=== PATIENT | male | born 1940 | race Caucasian/White ===

== ENCOUNTER 2017-08-23 17:29 | Inpatient (IN) | payer MEDICARE, OTHER ==
[~2017-08-23] VITALS: Ht 167.6 cm; Wt 75.3 kg
[~2017-08-23 17:29] MED LIST: ADULT LOW DOSE81 MG PO; ALDACTONE25 MG PO; AMITRIPTYLINE H50 M2 PER TUBE; ASPIRIN325; AVELOX 400 MG400 MG PO; DESYREL50 MG; EXFORGE; FISHOIL; HUMULINR100; IMDUR 30 MG TAB30 M1 PER TUBE; LOPRESSOR25 PO; MULTIVITAMINS; NEXIUM40 MG PO; PLAVIX 75 MG TA75 MG; ZETIA10 MG; ZOCOR40 MG
[2017-08-23] MEDS ORDERED: ELIQUIS5 MG PO (18:08)
[2017-08-23] MEDS ORDERED: DILTIAZEM HCL90 MG PER TUBE (18:12)
[2017-08-23] MEDS ORDERED: OMEGA-31000 M1 PER TUBE (18:16)
[2017-08-23] MEDS ORDERED: BENICAR40 MG PO (18:18)
[2017-08-23] MEDS ORDERED: PRAVACHOL40 MG PO (18:19)
[2017-08-23] MEDS ORDERED: LEVEMIR100 UNIT/1 SUBQ (18:21)
[2017-08-23] MEDS ORDERED: HUMALOG100 UNIT/1 SUBQ (18:22)
[2017-08-23 20:30] VITALS: BP 142/85
--- NOTE | 2017-08-23 23:02 | NUR ---
PT ARRIVED VIA TRANSPORTER FROM [place] AT 1930. PT IS ALERT AND ORIENTED. 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 DIFFICULT TO UNDERSTAND. ONLY ABLE TO MAKE OUT FEW WORDS BUT OTHERWISE SPEECH GARBLED. PT APPEARS TO BE ABLE TO UNDERSTAND CONVERSATIONS. ON O2 2L NC. TEMP: 99.6, BP: 142/85. HR IS IRREGULAR AND RUNNING FROM 60-150'S WITHIN MINUTES. 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 PT IS ON CARDIZEM. HX OF AFIB, HTN, DM. PT NOT IN DISTRESS AND DENIES ANY CHEST PAIN, DIZZINESS, HEADACHE OR SOA. DOES HAVE COUGH. FINE CRACKLES TO LOWER LOBES. HAD DIFFICULTY COMPLETING ADMISSION DUE TO APHASIA. PT SAYS WILL BE HERE TOMORROW. CALL LIGHT IN REACH. PT RESTING. WILL CONTINUE TO MONITOR.
[2017-08-24 03:48] LABS: HEMATOCRIT 42.5 % (42.0-52.0); MCH 29.8 pg (26.0-34.0); MCV 90.3 fL (80.0-100.0); MPV 7.7 fl. (7.2-11.1); RBC 4.71 mil/uL (4.50-6.00); RDW-CV 15.1 % (10.5-14.5); WBC 12.9 thou/uL (4.0-11.0)
[2017-08-24 04:02] LABS: CALCIUM 8.6 mg/dL (8.5-10.1); POTASSIUM 3.5 mmol/L (3.5-5.1)
--- NOTE | 2017-08-24 07:59 | NUR ---
PT IS A MOD ASSIST X 1-2 PERSON WITH WALKER. STAND AND PIVOT. RIGHT SIDE WEAK. TENDS TO LEAN TO RIGHT SIDE. WAS INCONTINENT OF URINE X 2. ASSISTED PT WITH USE OF URINAL WELL. STAFF DID ALL CARES. TAKES PILLS WHOLE IN APPLESAUCE WITHOUT ANY ISSUES. SLEPT OFF AND ON DURING THE NIGHT. CALL LIGHT IN REACH AND BED ALARM ON.
[2017-08-24 08:11] VITALS: BP 102/57
--- NOTE | 2017-08-24 16:17 | NUR ---
PT CALLS FOR ASSIST TO BATHROOM AND VOIDS WELL. PT AMBULATES WITH WALKER,GAITBELT AND MIN ASSIST OF 1 WITH QUEING TO FIELD SERVICE MANAGER RT. FOOT AND KEEP SELF IN WALKER. PT CONTINUES TO HAVE DIFFICULTY WITH WORDS AND IS APHASIC AND CAN ANSWER YES AND NO. PT HAS VISITED WITH WHO WILL BRING IN CLOTHING TOMORROW FOR PT. MEDS CRUSHED AND GIVEN IN APPLESAUCE BUT HE POCKETS FOODS IN RT.CHEEK AND IS ENCOURAGED TO TAKE DRINK OF NECTOR LIQUID BETWEEN BITES. PT STARTED ON MUCINEX DUE TO POOR COUGH AND COARSE CRACKLES IN BILAT LUNGS.PT DENIES PAIN OR NAUSEA AND FEEDS SELF PUREED MEALS AFTER CARTONS OPENED. PT ALERT AND PROGRESSES TOWARDS GOALS, HOURLY ROUNDING CONTINUES.
[2017-08-24 17:11] VITALS: BP 111/52
[2017-08-24 19:50] VITALS: BP 113/41
--- NOTE | 2017-08-25 05:21 | NUR ---
ASSUMED PT CARE AT 1920, PT ALREADY IN BED. LEFT CVA WITH R ELIZABETH, EXPRESSIVE APHASIA AND DYSPHAGIA. PT CAN ANSWER YES AND NO TO QUESTIONS. PT DENIES PAIN. INCONTINENT OF URINE X1 OVERNIGHT, WEARS BRIEFS. PT ASSISTED WITH USING URINAL AT BEGINNING OF SHIFT. STAFF DOES ALL CARES. PT TAKES PILLS WHOLE IN APPLESAUCE WITHOUT DIFFICULTY. SLEPT OFF AND ON OVERNIGHT. CALL LIGHT AND FREQUENTLY USED ITEMS WITHIN REACH, BED ALARM ON FOR SAFETY. HOURLY ROUNDING IN PROGRESS, WILL CONTINUE TO MONITOR.
[2017-08-25 08:09] VITALS: BP 93/53
--- NOTE | 2017-08-25 16:42 | NUR ---
PT HAS BEEN UP TO CHAIR AND AMBULATED TO BATHROOM WITH MOD ASSIST OF 1,GAITBELT AND WALKER WITH QUEING TO WALK RT FOOT THROUGH WITH GOOD STRENGTH. PT DENIES PAIN OR NAUSEA. PT TOLERATES MEALS AND EATS IN DINNINGROOM, PUREED DIET WITH NECTOR LIQUIDS. MEDICATIONS SPOONED WITH NECTOR LIQUIDS AND CHIN TUCK METHOD WITH GOOD RESULTS. PT HAS LOOSE COUGH IN AM WITH LUNGS CLEARER THIS AFTERNOON. PT REMAINS CONTINENT OF BLADDER WITH REMINDERS TO GO TO BATHROOM OR TAKEN BEFORE MEALS. PT WEARS BREIF FOR DRIBBLING, NO BM TODAY.PT ATEMPTS TO PULL UP BREIF BUT NEEDS ASSIST FOR STEADING. PT WAS ASSISTED WITH SHOWER TODAY. TO BRING IN CLOTHING TOMORROW. PT SEEMS ALERT AND ORIENTATED AND IS REMINDED TO USE WORDS AND WILL REPEAT CORRECT WORDS FOR NEEDS. PT PROGRESSES TOWARDS GOALS AND HOURLY ROUNDING CONTINUES.
[2017-08-25 18:05] VITALS: BP 99/51
[2017-08-25 20:22] VITALS: BP 107/50
[2017-08-26 04:18] LABS: ABSOLUTE BASOPHILS 0.1 thou/uL (0.0-0.2); ABSOLUTE EOSINOPHILS 0.2 thou/uL (0.0-0.7); ABSOLUTE LYMPHOCYTES 2.1 thou/uL (0.8-5.3); ABSOLUTE MONOCYTES 0.8 thou/uL (0.0-1.2); ABSOLUTE NEUTROPHILS 9.8 thou/uL (1.6-8.1); BASOPHILS 0.5 %; EOSINOPHILS 1.3 %; HEMATOCRIT 41.2 % (42.0-52.0); HEMOGLOBIN 13.6 gm/dL (14.0-18.0); LYMPHOCYTES 16.2 %; MCH 29.9 pg (26.0-34.0); MCHC 32.9 g/dL (28.0-37.0); MCV 90.9 fL (80.0-100.0); MONOCYTES 6.3 %; MPV 8.3 fl. (7.2-11.1); NUCLEATED RBCS 0 /100WBC; PLATELET COUNT* 204 thou/uL (150-400); POLYS 75.7 %; RBC 4.54 mil/uL (4.50-6.00); RDW-CV 15.2 % (10.5-14.5); WBC 12.9 thou/uL (4.0-11.0)
[2017-08-26 04:28] LABS: CALCIUM 8.5 mg/dL (8.5-10.1); POTASSIUM 3.3 mmol/L (3.5-5.1)
--- NOTE | 2017-08-26 05:20 | NUR ---
ASSUMED PT CARE [id number]. PT ALERT AND ORIENTED TO SELF AND SITUATION. PT ALREADY IN BED AT SHIFT CHANGE. LEFT CVA WITH R ELIZABETH, EXPRESSIVE APHASIA AND DYSPHAGIA. PT CAN ANSWER YES OR NO TO QUESTIONS. DENIES PAIN. TAKES PILLS WHOLE IN APPLESAUCE WITHOUT DIFFICULTY. PT WEARS BRIEFS, CHANGED PRN OVERNIGHT. STAFF DOES ALL CARES. NO STOOL THIS SHIFT. PT SLEPT WELL OVERNIGHT. CALL LIGHT AND FREQUENTLY USED ITEMS WITHIN REACH. BED ALARM ON FOR SAFETY. HOURLY ROUNDING IN PROGRESS WILL CONTINUE TO MONITOR.
[2017-08-26 07:50] VITALS: BP 117/56
--- NOTE | 2017-08-26 13:43 | NUR ---
Nutrition: Pt admitted to rehab with Lt CVA, Rt hemiparesis. Pt has expressive aphasia and dysphagia. H/o CVA, HTN, DM, afib. Labs: K+ 3.3, albumin 3.6, BG 236-363. Pt eating 50-90% of meals. Pureed diet with a CHO count is ordered; [place] thickened fluids. Will follow pt weekly.
--- NOTE | 2017-08-26 14:35 | NUR ---
SW met with pt and pt Hallie to complete initial assessment and introduce self and SW role on rehab unit. Pt was sleeping. Pt lives at home with his and was independent prior to the CVA. Pt does not have a rolling walker and may need one ordered prior to pt dc home. Pt history with [facility] and pt expressed that she was not impressed. Pt mentioned that pt was supposed to have an appt September 03 to check on carotid artery that apparently had a clot removed and pt said she asked about cancelling the appt and rescheduling but then was told pt may need the appt sooner rather than later. Pt could not recall who the appt was with or where the appt was. SW to continue to follow to assist with safe dc planning.
[2017-08-26 15:00] VITALS: BP 117/56
[2017-08-26 20:00] VITALS: BP 107/58
--- NOTE | 2017-08-27 05:13 | NUR ---
ASSUMED PT CARE AT 1930. PT ALERT AND ORIENTED TO SELF AND SITUATION. PT ALREADY IN BED AT SHIFT CHANGE. LEFT CVA WITH R ELIZABETH, EXPRESSIVE APHASIA AND DYSPHAGIA. PT CAN ANSWER YES OR NO TO QUESTIONS. DENIES PAIN. TAKES PILLS WHOLE IN APPLESAUCE WITHOUT DIFFICUTLY. PT USES URINAL AND WEARS BRIEFS, CHANGED PRN OVERNIGHT. STAFF DOES ALL CARES. NO STOOL THIS SHIFT. PT SPENT THE NIGHT. CALL LIGHT AND FREQUENTLY USED ITEMS WITHIN REACH. BED ALARM ON FOR SAFETY. HOURLY ROUNDING IN PROGRESS, WILL CONTINUE TO MONITOR.
[2017-08-27 07:30] VITALS: BP 115/68
[2017-08-27 11:00] VITALS: BP 105/60; BP 95/57
--- NOTE | 2017-08-27 15:09 | NUR ---
ASSUMED CARE AT 0730. ALERT ORIENTED PLEASANT COOPERATIVE. HX OF CVA WITH APHASIA. PT. ABLE TO EXPRESS NEEDS BY GESTURES SUCH GO TO BED OR URINAL TOILETING. HAS ISSUES WITH DROOLING AFTER TAKING NECTAR THICK FLUIDS GIVEN. TAKES MEDS WHOLE ONE AT A TIME WITH APPLESAUCE. FOLLOWED WITH NECTAR LIQUIDS. APPETITE GOOD FEEDS SELF WITH SET UP PUREED DIET. AT BEDSIDE. PARTICIPATING IN THERAPIES. TO DR FOR LUNCH MEAL WITH S.T. O2 AT 2L/M PER N/C AT TIMES PRONGS FROM CANNULA NOT IN NARES, RECEIVED LONGER TUBING FOR CONVENIENCE FROM R.T. PT. HAS DIFFICULTY GETTING SUPINE TO SIT FROM BED LEANS BACK IN BED. NEEDS CUES. VOIDED IN URINAL AND IN TOILET SAT ON TOILET GRABS GRAB BAR FOR THIS TRANSFER.
[2017-08-27 16:24] VITALS: BP 127/76
--- NOTE | 2017-08-27 16:25 | NUR ---
PT. MOVED WITH BELONGINGS TO ROOM 328-W AT 1620 VOIDED PER URINAL WEARS PULLUPS. COT OBTAINED FOR WHO IS STAYING TONIGHT. ORIENTED TO NEW ROOM AND PHONE NUMBER ETC.
[2017-08-27 20:00] VITALS: BP 126/62
[2017-08-28 04:50] LABS: CALCIUM 8.6 mg/dL (8.5-10.1)
[2017-08-28 04:55] LABS: ABSOLUTE BASOPHILS 0.1 thou/uL (0.0-0.2); ABSOLUTE EOSINOPHILS 0.3 thou/uL (0.0-0.7); ABSOLUTE LYMPHOCYTES 2.2 thou/uL (0.8-5.3); ABSOLUTE NEUTROPHILS 6.1 thou/uL (1.6-8.1); BASOPHILS 0.6 %; EOSINOPHILS 2.8 %; HEMATOCRIT 39.2 % (42.0-52.0); HEMOGLOBIN 13.3 gm/dL (14.0-18.0); LYMPHOCYTES 22.6 %; MCH 30.4 pg (26.0-34.0); MCHC 33.9 g/dL (28.0-37.0); MCV 89.6 fL (80.0-100.0); MONOCYTES 10.2 %; MPV 8.3 fl. (7.2-11.1); NUCLEATED RBCS 0 /100WBC; PLATELET COUNT* 236 thou/uL (150-400); POLYS 63.8 %; RBC 4.38 mil/uL (4.50-6.00); RDW-CV 15.2 % (10.5-14.5); WBC 9.6 thou/uL (4.0-11.0)
--- NOTE | 2017-08-28 05:24 | NUR ---
ASSUMED CARES AT 1920. PT ALERT. PLEASANT. AT BEDSIDE. PT ON O2 2L NC. EXPRESSIVE APHASIA. MAKES NEEDS KNOWN BY GESTURES. DYSPHAGIA. TAKES PILLS WHOLE IN APPLESAUCE. NECTAR THICK LIQUIDS. CUEING TO SWALLOW AND TAKE SIPS. DENIED ANY PAIN. DOES HAVE COUGH. HE IS A MOD ASSIST WITH GAIT BELT AND WALKER/WC. UP TO TOILET ONCE AND HAD BM. CAN USE URINAL IF OFFERED BUT IS INCONTNENT WELL. WEARS PULLUPS. RN DID ALL CARES. STAYED OVERNIGHT. SLEPT MOST OF THE NIGHT. PT TURNS SELF WELL IN BED AND WILL SLEEP ON BOTH SIDES. CALL LIGHT IN REACH. BED ALARM ON.
[2017-08-28 08:05] VITALS: BP 111/68
--- NOTE | 2017-08-28 17:10 | NUR ---
SW met with pt and pt and two friends in the room as well to review team conference summary with pt. Plan for pt to remain on rehab and continue therapies at least another week and team will reassess pt length of stay during next team conference on Monday 09/04. Pt and pt in agreement with plan. Pt discussed pt possible appt or Dr to see pt in the hospital and provided number to the office she has been talking with: [phone]. Pt said that she also provided information to pt nurse. THOMAS to continue to follow to assist with safe dc planning.
--- NOTE | 2017-08-28 17:39 | NUR ---
ASSUMED CARE AT 0730 PATIENT ALERT/ORIENTED, NO COMPLAINTS OF PAIN THIS SHIFT, UP WITH ASSIST OF ONE AND WALKER AND GAIT BELT. APHASIC BUT ABLE TO MAKE BASIC NEEDS KNOWN, HOURLY ROUNDING COMPLETED, TO DINING ROOM FOR MEALS, BED/CHAIR ALARMS IN PLACE, PARTICIPATED IN ALL THERAPIES TODAY. CALL LIGHT IN REACH. CONTINUE WITH CURRENT PLAN OF CARE
[2017-08-28 20:20] VITALS: BP 108/60
[2017-08-29] VITALS: BP 128/62
--- NOTE | 2017-08-29 01:44 | NUR ---
ASSUMED CARE @ 1935[birth year]08[birth year]-.SITS IN RECLINER WATCHING TV.WEARS PULL UPS. HOB UP WHEN IN BED.HEELS OFF BED @ 2034.BED ALARM PUT ON @ 2034.TURNS SELF @ NIGHT.TAKES MEDS WHOLE ONE @ A TIME W/ APPLE SAUCE FOLLOWED W/ NECTAR THICK JUICE.ON HOURLY ROUNDS.VETERINARY RECEPTIONIST DOING ODD HOUR ROUNDS.CVA W/ APHASIA & DYSPHAGIA.
[2017-08-29 04:19] LABS: ABSOLUTE BASOPHILS 0.1 thou/uL (0.0-0.2); ABSOLUTE EOSINOPHILS 0.2 thou/uL (0.0-0.7); ABSOLUTE LYMPHOCYTES 2.3 thou/uL (0.8-5.3); ABSOLUTE MONOCYTES 0.9 thou/uL (0.0-1.2); ABSOLUTE NEUTROPHILS 5.2 thou/uL (1.6-8.1); BASOPHILS 0.6 %; EOSINOPHILS 2.6 %; HEMATOCRIT 38.3 % (42.0-52.0); HEMOGLOBIN 12.8 gm/dL (14.0-18.0); LYMPHOCYTES 26.7 %; MCH 30.2 pg (26.0-34.0); MCHC 33.4 g/dL (28.0-37.0); MCV 90.2 fL (80.0-100.0); MONOCYTES 10.1 %; MPV 7.9 fl. (7.2-11.1); NUCLEATED RBCS 0 /100WBC; PLATELET COUNT* 244 thou/uL (150-400); RBC 4.25 mil/uL (4.50-6.00); RDW-CV 14.9 % (10.5-14.5); WBC 8.6 thou/uL (4.0-11.0)
[2017-08-29 04:26] LABS: CALCIUM 8.6 mg/dL (8.5-10.1)
[2017-08-29 04:43] LABS: POTASSIUM 4.2 mmol/L (3.5-5.1)
--- NOTE | 2017-08-29 05:20 | NUR ---
SLEEPING SINCE 0.WEARS PULL UPS.TURNS SELF @ NIGHT.TOOK ALL NECTAR THICK APPLE JUICE W/ APPLE SAUCE GIVEN W/ HS MEDS.BRP X1 W/ ASSIST.URINAL W/IN REACH.
[2017-08-29 06:40] VITALS: BP 133/82
[2017-08-29 07:24] VITALS: BP 113/55
--- NOTE | 2017-08-29 16:26 | NUR ---
ASSUMED CARE AT 0730 PATIENT ALERT/ORIENTED NO COMPLAINTS OF PAIN THIS SHIFT, APHASIC BUT ABLE TO MAKE NEEDS KNOWN, UP WITH ONE AND WALKER/GAIT BELT. TO DINING ROOM FOR MEALS, HOURLY ROUNDING COMPLETED, BED/CHAIR ALARMS IN PLACE. PARTICIPATED IN ALL THERAPIES TODAY. CONTINUE WITH CURRENT PLAN OF CARE
[2017-08-29 20:00] VITALS: BP 100/43
[2017-08-30 04:25] LABS: ABSOLUTE BASOPHILS 0.1 thou/uL (0.0-0.2); ABSOLUTE EOSINOPHILS 0.2 thou/uL (0.0-0.7); ABSOLUTE LYMPHOCYTES 2.1 thou/uL (0.8-5.3); ABSOLUTE MONOCYTES 0.7 thou/uL (0.0-1.2); ABSOLUTE NEUTROPHILS 5.5 thou/uL (1.6-8.1); BASOPHILS 0.8 %; EOSINOPHILS 2.2 %; HEMATOCRIT 37.9 % (42.0-52.0); HEMOGLOBIN 12.5 gm/dL (14.0-18.0); LYMPHOCYTES 24.5 %; MCHC 33.1 g/dL (28.0-37.0); MCV 90.8 fL (80.0-100.0); MONOCYTES 8.4 %; MPV 7.7 fl. (7.2-11.1); NUCLEATED RBCS 0 /100WBC; PLATELET COUNT* 262 thou/uL (150-400); POLYS 64.1 %; RBC 4.17 mil/uL (4.50-6.00); RDW-CV 14.9 % (10.5-14.5); WBC 8.6 thou/uL (4.0-11.0)
[2017-08-30 04:50] LABS: CALCIUM 8.5 mg/dL (8.5-10.1); CREATININE 0.9 mg/dL (0.6-1.3); POTASSIUM 3.7 mmol/L (3.5-5.1)
--- NOTE | 2017-08-30 06:26 | NUR ---
ASSUMED PT CARE AT 1930. PT ALREADY IN BED ASLEEP. CVA WITH APHASIA AND DYSPHAGIA. AROUSES FOR HS MEDS TAKEN WHOLE WITH APPLESAUCE AND FOLLOWED WITH NECTAR THICK JUICE. PT HAS STRONG PRODUCTIVE COUGH. PT DENIES PAIN. PT WEARS PULLUPS OVERNIGHT. VOIDED PER URINAL X1. PT TURNS SELF AT NIGHT. PT USES CALL LIGHT APPROPRIATELY. CALL LIGHT AND FREQUENTLY USED ITEMS WITHIN REACH. HOURLY ROUNDING IN PROGRESS, WILL CONTINUE TO MONITOR.
[2017-08-30 08:31] VITALS: BP 116/57
--- NOTE | 2017-08-30 18:19 | NUR ---
ASSUMMED CARE OF PT AT 0730, PT ALERT AND ORIENTED, TRANSFERS WITH ASSIST OF 1, GB AND WALKER, PT APHASIC USES GESTURES AND FEW WORDS, PT HAS DECREASED APETITE, PT DENIES PAIN, DENIES NAUSEA, PT IN CHAIR ALL SHIFT, STATES DOES NOT WANT TO LAY DOWN, PT ENCOURAGED TO SHIFT WEIGHT IN CHAIR FREQUENTLY, DOES CHANGE POSITIONS WITH THERAPIES AND SWITCHES BETWEEN WHEELCHAIR AND ROOM CHAIR AT INTERVALS, VOID PER TOILET AND URINAL THIS SHIFT, WEARS BRIEF FOR SOME INCONTINENCE, PARTICIPATED IN ALL THERAPIES, TO DININGROOM FOR LUNCH AND DINNER, HOURLY ROUNDING COMPLETED, ASSESSMENT COMPLETE, WILL CONTINUE TO MONITER.
[2017-08-30 20:34] VITALS: BP 115/51
--- NOTE | 2017-08-30 23:16 | NUR ---
ASSUMED CARE AT 1930. S/P CVA WITH RT SIDED WEAKNESS AND APHASIA. PATIENT RESTING IN BED AT CHANGE OF SHIFT. SPENDING THE NIGHT AND ASKING PERTINENT QUESTIONS ABOUT HIS MEDICATIONS. REASSURED THAT WE WILL GIVE HER A DETAILED LIST OF HOME MEDICATIONS WHEN HE IS DISCHARGED. TAKES PILLS WHOLE IN APPLESAUCE, FOLLOWED BY NECTAR THICKENED LIQUIDS. HAD ENTIRE CONTAINER OF APPLESAUCE AT HS WITH MEDS AND DECLINED FURTHER SNACK. PATIENT DOES MAKE NEEDS KNOWN. TURNS SELF. WEARS PULLUPS. VOIDS PER URINAL AT [facility]. HOURLY ROUNDS CONTINUE. BED ALARM ON. CALL LITE IN REACH.
[2017-08-31 04:18] LABS: ABSOLUTE BASOPHILS 0.1 thou/uL (0.0-0.2); ABSOLUTE EOSINOPHILS 0.2 thou/uL (0.0-0.7); ABSOLUTE MONOCYTES 0.6 thou/uL (0.0-1.2); ABSOLUTE NEUTROPHILS 4.5 thou/uL (1.6-8.1); BASOPHILS 0.8 %; EOSINOPHILS 2.4 %; HEMATOCRIT 38.5 % (42.0-52.0); HEMOGLOBIN 12.9 gm/dL (14.0-18.0); LYMPHOCYTES 26.8 %; MCH 30.1 pg (26.0-34.0); MCHC 33.5 g/dL (28.0-37.0); MCV 89.8 fL (80.0-100.0); MONOCYTES 8.7 %; MPV 7.8 fl. (7.2-11.1); NUCLEATED RBCS 0 /100WBC; PLATELET COUNT* 295 thou/uL (150-400); POLYS 61.3 %; RBC 4.29 mil/uL (4.50-6.00); RDW-CV 15.2 % (10.5-14.5); WBC 7.3 thou/uL (4.0-11.0)
[2017-08-31 04:31] LABS: CALCIUM 8.6 mg/dL (8.5-10.1)
--- NOTE | 2017-08-31 05:57 | NUR ---
SLEPT MOST OF THE NIGHT. TURNS SELF. NO C/O PAIN. SPENT THE NIGHT. HOURLY ROUNDS CONTINUE. BED ALARM ON. CALL LITE IN REACH.
[2017-08-31 07:30] VITALS: BP 119/48
--- NOTE | 2017-08-31 18:18 | NUR ---
ASSUMED CARE AT 0730. ALERT ORIENTED PLEASANT COOPERATIVE. HX OF CVA APHASIA MAKES NEEDS KNOWN BY GESTURES. TRANSFERS WITH SBA G BELT WALKER O2 ON AT 2L/M PER N/C. AMBULATED TO BR TO VOID AFTER GETTING UP. USING CALL LIGHT APPROPRIATELY FOR ASSISTANCE. BED CHAIR ALARM FOR PT. SAFETY. O2 SAT WAS 85% ON ROOM AIR THIS A.M. O2 PLACED AT 2L/M PER N/C AND CAME UP TO 97%. PARTICIPATING IN THERAPIES. FEEDS SELF WITH SET UP. DENIES PAIN OR REQUESTS. TAKES MEDS WITH APPLESAUCE WHOLE. AT BEDSIDE. HAD A SMALL BM THIS AFTERNOON.
[2017-08-31 20:11] VITALS: BP 94/67
--- NOTE | 2017-09-01 03:03 | NUR ---
PT UNABLE TO VOID INTO URINAL AFTER 2 ATTEMPTS SINCE BEGINNING OF NIGHT. DENIES ANY PAIN. AT 0200, BLADDER SCAN SHOWED 700 CC. PT GOT UP TO TOILET AND WAS ABLE TO VOID COURT URINE. PVR SCAN SHOWED 450 CC. PT RETURNED TO BED. RESTING NOW. WILL CONTINUE TO MONITOR.
--- NOTE | 2017-09-01 05:15 | NUR ---
ASSUMED CARES AT 1920. PT ALERT. PLEASANT. STAYED OVERNIGHT. ON O2 2L NC. DOES HAVE LOOSE COUGH WITH SMALL AMOUNTS OF THICK YELLOW SPUTUM. DENIES ANY PAIN. HE IS A MOD ASSIST WITH GAIT BELT AND WALKER. MORE WEAK DURING THE NIGHT. MAY TEND TO LEAN TO RIGHT SIDE. WEARS PULLUPS. TAKES PILLS WHOLE IN APPLESAUCE AND NECTAR THICK LIQUIDS. PT SLEPT OFF AND ON. SLEPT OVERNIGHT. CALL LIGHT IN REACH.
[2017-09-01 08:00] VITALS: BP 99/60
[2017-09-01 13:00] VITALS: BP 96/56
[2017-09-01 14:23] LABS: URINE BILIRUBIN NEGATIVE (Negative); URINE BLOOD 3+ (Negative); URINE CLARITY SL CLOUDY; URINE COLOR YELLOW; URINE GLUCOSE-RANDOM NEGATIVE (Negative); URINE KETONES NEGATIVE (Negative); URINE LEUKOCYTES-REFLEX 1+ (Negative); URINE NITRITE-REFLEX NEGATIVE (Negative); URINE PROTEIN 1+ (Negative)
[2017-09-01 14:34] LABS: BACTERIA-REFLEX >30 Many /HPF (None Seen); CASTS None Seen /LPF (None Seen); CRYSTALS None Seen /LPF (None Seen); MUCUS None Seen strn/LPF (None Seen); SQUAMOUS 0-3 Few /LPF (0-3); URINE RBC >20 Many /HPF (0-2); URINE WBC-REFLEX >25 Many /HPF (0-5)
--- NOTE | 2017-09-01 16:28 | NUR ---
ASSUMMED CARE OF PT AT 0730, PT APHASIC TRANSFERRED THIS AM WITH MIN ASSIST BG WALKER CUEING, AT NOON PT NOTED TO BE LEANING TO RIGHT SIDE, AND HE WAS UNABLE TO MAINTENANCE TECHNICIAN 3RD SHIFT RIGHT LEG TO MOVE FORWARD, HIS GAIT WAS VERY UNSTEADY, DISCUSSED WITH DR LANIER AND ORDER FOR HEAD CT OBTAINED, PT VOIDED IN TOILET AT 0800 BUT HAD BEEN UP TO TOILET 2 ADDITIONAL TIMES WITH INABILITY TO VOID, PT SCANNED FOR 481 CC, DISCUSSED WITH ADINA AND PT ST CATHED AT [address] CLOUDY URINE, SOME BLOOD NOTED, UA SENT TO LAB, RESULTS OF UA AND CT SCAN CALLED TO PHYSICIAN, O2 SAT 91% ON 2 L, PT ENCOURAGED TO COUGH AND DEEP BREATHE, USE OF IS, PT RESTING IN BED THIS PM, VSS, ATE WELL FOR BREAKFAST AND LUNCH, HOURLY ROUNDING COMPLETED, ASSESSMENT COMPLETE WILL CONTINUE TO MONITER.
[2017-09-01 20:00] VITALS: BP 101/53
--- NOTE | 2017-09-02 06:20 | NUR ---
ASSUMED CARES AT 1920. PT ALERT. PLEASANT. APHASIC. CAN MAKE NEEDS KNOWN WITH GESTURES. UNDERSTANDS QUESTIONS AND COMMANDS. ON O2 2L NC. TAKES PILLS WHOLE IN APPLESAUCE AND NECTAR THICK LIQUIDS. LOOSE COUGH. ATE ALL APPLESAUCE FOR HS SNACK. PT CONTINUES TO HAVE ISSUES WITH VOIDING. HAS NOT VOIDING FOR OVER 12 HRS. BLADDER SCAN AT 05[address] LANIER AT 0600. CALL LIGHT IN REACH. WILL CONTINUE TO MONITOR.
[2017-09-02 07:55] VITALS: BP 131/62
--- NOTE | 2017-09-02 15:09 | NUR ---
ASSUMED CARE AT 0730 PATIENT ALERT/ORIENTED, NO COMPLAINTS OF PAIN THIS SHIFT, 02 AT 2L PER NC CONTINUOUS STATING AT 95-97%. HOURLY ROUNDING COMPLETED, BED/CHAIR ALARMS IN PLACE, CALL LIGHT IN REACH. TO DINING ROOM FOR MEALS, PARTICIPATED IN ALL THERPIES TODAY. HAS VOIDED X3 THIS SHIFT, CONTINUES ON CIPRO FOR UTI, ENCOURAGED FLUIDS, PATIENT IS ON NECTAR THICK LIQUIDS. CONTINUE WITH CURRENT PLAN OF CARE
[2017-09-02 16:54] VITALS: BP 105/46
[2017-09-02 20:00] VITALS: BP 120/50
--- NOTE | 2017-09-02 23:02 | NUR ---
ACCUCHECK AT 2100 WAS 62. APPLESAUCE AND NECTAR TEA GIVEN. RECHECK AT 2214 WAS 48. PT APPEARS TO BE ASYMPTOMATIC. LEVEMIR HELD. PT WAS GIVEN PUDDING AND NECTAR OJ. RECHECK AT 0 WAS 132. PT RESTING WILL CONTINUE TO MONITOR.
--- NOTE | 2017-09-03 01:26 | NUR ---
PT UNABLE TO VOID AT 0030. BLADDER SCAN SHOWED 840 CC. PT WAS STRAIGHT CATHED AND HAD [address] URINE. ENCOURAGED PT TO DRINK MORE FLUIDS. RESTING COMFORTABLY.
[2017-09-03 04:12] LABS: ABSOLUTE BASOPHILS 0.1 thou/uL (0.0-0.2); ABSOLUTE EOSINOPHILS 0.2 thou/uL (0.0-0.7); ABSOLUTE LYMPHOCYTES 1.7 thou/uL (0.8-5.3); ABSOLUTE MONOCYTES 0.6 thou/uL (0.0-1.2); ABSOLUTE NEUTROPHILS 6.2 thou/uL (1.6-8.1); BASOPHILS 0.7 %; EOSINOPHILS 2.2 %; HEMATOCRIT 37.4 % (42.0-52.0); HEMOGLOBIN 12.2 gm/dL (14.0-18.0); LYMPHOCYTES 19.6 %; MCH 29.7 pg (26.0-34.0); MCHC 32.6 g/dL (28.0-37.0); MCV 91.2 fL (80.0-100.0); MONOCYTES 6.4 %; MPV 7.7 fl. (7.2-11.1); NUCLEATED RBCS 0 /100WBC; PLATELET COUNT* 364 thou/uL (150-400); POLYS 71.1 %; RDW-CV 15.5 % (10.5-14.5); WBC 8.7 thou/uL (4.0-11.0)
[2017-09-03 04:34] LABS: CALCIUM 8.6 mg/dL (8.5-10.1); CREATININE 0.9 mg/dL (0.6-1.3)
--- NOTE | 2017-09-03 05:31 | NUR ---
ASSUMED CARES AT 1920. CVA WITH RIGHT SIDE WEAKNESS. APHASIC. PT MUMBLES WORDS BUT WILL MOSTLY GESTURE TO COMMUNICATE. ON O2 2L NC. STILL HAS LOOSE COUGH. TAKES PILLS WHOLE IN APPLESAUCE AND NECTAR LIQUIDS. HE IS A MIN ASSIST WITH GAIT BELT AND WALKER. STAYED OVERNIGHT. CALL LIGHT IN REACH AND BED ALARM ON.
[2017-09-03 07:32] VITALS: BP 127/50
--- NOTE | 2017-09-03 16:33 | NUR ---
SW followed up with pt about pt progress on rehab unit and dc planning. Pt was sleeping. Pt said that she hoped pt had more time and that she was concerned with pt bladder emptying properly and making sure pt would be ready to dc whenever dc time nears. SW mentioned HH services and pt to continue therapies for a while longer here at least. Pt noted that the doctor will meet with pt to check pt carotid artery on Saturday. SW to continue to follow to assist with safe dc planning.
--- NOTE | 2017-09-03 16:53 | NUR ---
ASSUMMED CARE OF PT AT 0730, PT ALERT, PT TRANSFERS WITH ASSIST OF 1, GB WALKER CUEING, BECOMES MORE UNSTEADY IN AFTERNOON DUE TO FATIGUE, PT DENIES PAIN, DENIES NAUSEA, TAKING FOOD WELL MAINTAINING THICKENED LIQUIDS ALTHOUGH NEEDS TO BE ENCOURAGED TO INCREASE FLUID INTAKE, PT HAD LARGE BM THIS SHIFT, PT UP TO TOILET X2 THIS SHIFT AND UNABLE TO VOID, BLADDER SCANNED FOR 667CC, ST CATHED FOR 625CC, DISCUSSED WITH PHYSICIAN AND ORDER OBTAINED TO PLACE [place] CATHETER IF NEXT BLADDER SCAN > 500CC. PT PARTICIPATED IN ALL THERAPIES, TO DININGROOM FOR LUNCH, HOURLY ROUNDING COMPLETED, O2 SAT 92-93% ON RA THIS SHIFT, WILL CONTINUE TO CHECK O2 SAT.ASSESSMENT COMPLETE, WILL CONTINUE TO MONITER.
[2017-09-03 21:01] VITALS: BP 95/48
--- NOTE | 2017-09-04 05:19 | NUR ---
ASSUMED PT CARE AT 1930. PT ALREADY IN BED SLEEPING. AROUSES FOR ASSESSMENT AND HS MEDS. DENIES PAIN. HX OF CVA WITH RIGHT SIDE WEAKNESS. TAKES PILLS WHOLE IN APPLESAUCE WITHOUT DIFFICULTY. NEEDS ENCOURAGEMENT TO DRINK NECTAR THICK LIQUIDS. ON 2L 02 PER NC. LOOSE COUGH. PT BLADDER SCANNED FOR 348, NO [place] PLACED AT THIS TIME. ORDER IS TO PLACE [place] CATHETER IF BLADDER SCAN >500. NO STOOL THIS SHIFT. CALL LIGHT AND FREQUENTLY USED ITEMS WITHIN REACH, USES CALL LIGHT APPROPRIATELY. HOURLY ROUNDING IN PROGRESS, WILL CONTINUE TO MONITOR.
[2017-09-04 07:45] VITALS: BP 118/62
--- NOTE | 2017-09-04 16:33 | NUR ---
SW reviewed team conference summary with pt. Plan for pt to dc Monday 09/11 with possible reteam that day if needed...team recommending SNF due to pt unable to care for pt and pt needing more time to make progress towards goals. Pt agreeable to plan for one more week of rehab here. SW called to review team conference summary with pt as she was not present in pt room today however pt did not answer so SW will continue to try to discuss dc planning and SNF placement options with pt . SW to continue to follow to assist with safe dc plans.
--- NOTE | 2017-09-04 17:00 | NUR ---
PT ALERT AND CALLS FOR ASSIST NEEDS AND IS ALBE TO MAKE BASIC NEEDS KNOWN. PT DENIES PAIN OR NAUSEA AND FEEDS SELF PUREED DIET WITH NECTOR LIQUIDS. [place] TO DD WITH CLEAR YELLOW URINE PRESENT. PT AMBULATES SHORT DISTANCES WITH WALKER,GAITBELT AND MIN ASSIST OF 1. PT CONTINUES TO PROGRESS TOWARDS GOALS AND HOURLY ROUNDING CONTINUES.
[2017-09-04 20:57] VITALS: BP 122/70
--- NOTE | 2017-09-05 05:40 | NUR ---
ASSUMED PT CARE AT 1930. PT IN BED ASLEEP, AROUSES FOR ASSESSMENT AND HS MEDS. DENIES PAIN. HX OF CVA WITH RIGHT SIDE WEAKNESS. TAKES PILLS WHOLE IN APPLESAUCE WITHOUT DIFFICULTY. ENCOURAGED TO DRINK NECTAR THICK LIQUIDS. ON 2L 02 PER NC. LOOSE COUGH. [place] TO DD WITH DARK YELLOW URINE. NO STOOL THIS SHIFT. SPENT THE NIGHT AT BEDSIDE. CALL LIGHT AND FREQUENTLY USED ITEMS WITHIN REACH. HOURLY ROUNDING IN PROGRESS, WILL CONTINUE TO MONITOR.
[2017-09-05 05:59] LABS: ABSOLUTE BASOPHILS 0.1 thou/uL (0.0-0.2); ABSOLUTE EOSINOPHILS 0.2 thou/uL (0.0-0.7); ABSOLUTE LYMPHOCYTES 1.9 thou/uL (0.8-5.3); ABSOLUTE MONOCYTES 0.5 thou/uL (0.0-1.2); ABSOLUTE NEUTROPHILS 3.8 thou/uL (1.6-8.1); BASOPHILS 1.3 %; EOSINOPHILS 3.8 %; HEMATOCRIT 35.7 % (42.0-52.0); LYMPHOCYTES 28.6 %; MCH 30.3 pg (26.0-34.0); MCHC 33.7 g/dL (28.0-37.0); MCV 89.9 fL (80.0-100.0); MONOCYTES 8.2 %; MPV 7.1 fl. (7.2-11.1); NUCLEATED RBCS 0 /100WBC; PLATELET COUNT* 421 thou/uL (150-400); POLYS 58.1 %; RBC 3.97 mil/uL (4.50-6.00); WBC 6.6 thou/uL (4.0-11.0)
[2017-09-05 06:03] LABS: CALCIUM 8.5 mg/dL (8.5-10.1); CREATININE 0.8 mg/dL (0.6-1.3); POTASSIUM 3.6 mmol/L (3.5-5.1)
[2017-09-05 08:21] VITALS: BP 118/56
--- NOTE | 2017-09-05 15:32 | NUR ---
SW followed up to speak with pt about team conference summary and dc planning. SW mentioned pt to remain on rehab one more week and then pt would be recommended to go to SNF for a while prior to return home. Pt did not understand at first but then SW explained again about pt needing to go to SNF for more rehab. Pt said she was okay with [facility]. SW to fax referral and to continue to follow to assist with safe dc planning.
--- NOTE | 2017-09-05 18:16 | NUR ---
PT CALLS FOR ASSIST TO TRANSFERR AND GO TO BATHROOM. PT DENIES PAIN AND HAS WORKED WITH THERAPIES. [place] TO DD WITH CLEAR DARK [place] URINE NOTED. ADEQUATE AMOUNT. PT ENCOURAGED TO DRINK HONEY THICKENED LIQUIDS. PT HAS BEEN ON O2 AT 2L PER NC AND IS ON ROOM AIR NOW AT 92%. PT DENIES SOB. PT CONTINUES TO PROGRESS TOWARDS GOALS AND HOURLY ROUNDING CONTINUES.
[2017-09-05 20:04] VITALS: BP 121/56
--- NOTE | 2017-09-05 22:15 | NUR ---
AWAKENED FOR HS REASSESSMENT AND MED PASS. DENIES DISCOMFORT. NONVERBAL AT THIS TIMES. POINTS AND GESTURES TO COMMUNICATE. [place] TO DD WITH CLEAR/COURT URINE. AT BEDSIDE AND STAYS ALL NIGHT WITH PATIENT. TOOK MEDS WHOLE ONE AT A TIME WITH APPLESAUCE AND FOLLOWED WITH HONEY THICKENED APPLE JUICE. WARM BLANKET PROVIDED PER PT'S REQUEST.
--- NOTE | 2017-09-06 05:33 | NUR ---
ROMARIO JOHNS. NO C/O DISCOMFORT. HOURLY ROUNDING IN PROGRESS.
[2017-09-06 08:34] VITALS: BP 115/51
--- NOTE | 2017-09-06 17:15 | NUR ---
ASSUMED CARE AT 0730. ALERT ORIENTED PLEASANT COOPERATIVE. HX OF CVA TRANSFERS WITH SBA G BELT WALKER AND AMBULATES TO BR FOR BMS. [place] PATENT WITH YELLOW URINE DD BAG BUT LATER AFTERNOON TUBING HAS RED URINE WILL MONITOR POSSIBLY PULLING TUBING WITH AMBULATION WITH WALKER. PT. HAS APHASIA AND DYSPHAGIA ON HONEY THICK LIQUIDS AND PUREED DIET TAKES MEDS WITH APPLESAUCE WHOLE. PARTICIPATING IN THERAPIES O2 ON AT 2L/M PER N/C. USES CALL LIGHT APPROPRIATELY FOR ASSIST. HERE WITH PT. GESTURES AND POINTS TO MAKE NEEDS KNOWN.
[2017-09-06 20:08] VITALS: BP 112/55
--- NOTE | 2017-09-07 07:38 | NUR ---
ASSUMED CARE AT 1920. PT ALERT. PLEASANT. CVA WITH RIGHT SIDE WEAKNESS. APHASIC. DYSPHAGIA. ON O2 2L NC. DENIES ANY PAIN. TAKES PILL WHOLE IN APPLESAUCE AND HONEY THICK LIQUIDS. [place] CATHETER DD BLOODY/TEA COLORED URINE. HOWEVER THIS AM URINE IS NOT BLOODY. SLEPT WELL MOST OF THE NIGHT. CALL LIGHT IN REACH AND BED ALARM ON.
[2017-09-07 07:55] VITALS: BP 120/58
--- NOTE | 2017-09-07 16:25 | NUR ---
PT HAS BEEN TAKING NAP IN BED AND CALLS NOW. PT ASSISTED TO RECLINER AND INDICATES WANTING BLOOD GLUCOSE CHECKED BG IS 39. PT IS FED APPLESAUCE AND HONEY THICK ORANGE JUICE. WILL RECHECK BG IN [address] ORDER [facility]. PT REMAINS ALERT AND ORIENTATED. [place] TO DD WITH BOLLDY URINE NOW. URINE WAS CLEAR YELLOW THIS AM. AT BEDSIDE.
--- NOTE | 2017-09-07 18:13 | NUR ---
NOTIFIED OF BG'S AND ORDERS TO HOLD SUPPER INSULIN. PT REMAINS ALERT AND ORIENTATED AND DENIES PAIN. PT TOLERATED SUPPER WELL AND EATS WITH IN DINNINGROOM. PT REMAINS ON O2 AT 2L PER NC. [place] TO DD WITH ADEQUATE OUTPUT.PT VISITS WITH .
[2017-09-07 20:09] VITALS: BP 141/62
[2017-09-08 00:25] LABS: URINE BILIRUBIN NEGATIVE (Negative); URINE BLOOD 3+ (Negative); URINE CLARITY CLOUDY; URINE COLOR RED; URINE GLUCOSE-RANDOM NEGATIVE (Negative); URINE KETONES NEGATIVE (Negative); URINE LEUKOCYTES-REFLEX NEGATIVE (Negative); URINE NITRITE-REFLEX NEGATIVE (Negative); URINE PROTEIN 3+ (Negative); URINE SPECIFIC GRAVITY >= 1.030 (1.005-1.030); URINE UROBILINOGEN 0.2 E.U./dl (0.2-1.0)
[2017-09-08 00:30] LABS: BACTERIA-REFLEX 1-9 Few /HPF (None Seen); CASTS None Seen /LPF (None Seen); CRYSTALS None Seen /LPF (None Seen); MUCUS None Seen strn/LPF (None Seen); SQUAMOUS 0-3 Few /LPF (0-3); URINE RBC >20 Many /HPF (0-2); URINE WBC-REFLEX 0-5 Rare /HPF (0-5)
--- NOTE | 2017-09-08 05:06 | NUR ---
ASSUMED PT CARE AT 1930. PT ALERT, PLEASANT AND COOPERATIVE WITH CARES. S/P CVA WITH RIGHT SIDE WEAKNESS. APHASIC. DYSPHAGIA. PT GESTURES AND POINTS TO MAKE NEEDS KNOWN. ON 2L 02 PER NC. DENIES PAIN. SITTING IN RECLINER AT SHIFT CHANGE, TRANSFERRED TO BED WITH SBA, GAIT BELT AND WALKER. TAKES PILLS WHOLE IN APPLESAUCE AND HONEY THICK LIQUIDS. [place] CATHETER TO DD WITH BLOODY URINE. URINE CULTURE SENT TO LAB. STAYED OVERNIGHT. CALL LIGHT AND FREQUENTLY USED ITEMS WITHIN REACH. BED ALARM ON FOR SAFETY. HOURLY ROUNDING IN PROGRESS, WILL CONTINUE TO MONITOR.
[2017-09-08 08:00] VITALS: BP 139/60
--- NOTE | 2017-09-08 18:27 | NUR ---
pt has been up to w/c and recliner today and did take short nap. has been here to visit. requests pt go to [facility] or [facility] at discharge. pt is alert and orientated but remains unable to voice needs. pt denies pain and goes to dinningroom to eat meals. eduardo to dd with clearer dark red urine present and good output.pt remains on o2 at 2l per nc.hourly rounding continues.
[2017-09-08 20:12] VITALS: BP 136/57
--- NOTE | 2017-09-09 05:11 | NUR ---
ASSUMED PT CARE AT 1930. PT ALERT, PLEASANT AND COOPERATIVE WITH CARES. S/P CVA WITH RIGHT SIDE WEAKNESS. APHASIC. DYSPHAGIA. PT GESTURES AND POINTS TO MAKE NEEDS KNOWN. ON 2L 02 PER NC. DENIES PAIN. PT TO RADIOLOGY AT SHIFT CHANGE FOR KUB. TRANSFERS WITH SBA, GAIT BELT AND WALKER. TAKES PILLS WHOLE IN APPLESAUCE AND HONEY THICK LIQUIDS. [place] CATHETER TO DD WITH BLOODY DRAINAGE. UROLOGY CONSULT TODAY. IV PLACED IN RIGHT HAND FOR NEWLY ORDERED IV CIPRO. CALL LIGHT AND FREQUENTLY USED ITEMS WITHIN REACH. BED ALARM ON FOR SAFETY. HOURLY ROUNDING IN PROGRESS, WILL CONTINUE TO MONITOR.
[2017-09-09 07:30] VITALS: BP 125/57
--- NOTE | 2017-09-09 10:23 | NUR ---
SW called pt to discuss pt will have more time on ARU due to pt now on IV abx. Team to reteam on Saturday and pt length of stay now a week longer due to medical need changes. SW to continue to follow to assist with safe dc planning.
[2017-09-09 11:36] VITALS: BP 106/50
[2017-09-09 13:49] LABS: CALCIUM 8.8 mg/dL (8.5-10.1); POTASSIUM 3.6 mmol/L (3.5-5.1)
--- NOTE | 2017-09-09 15:43 | NUR ---
ASSUMED CARE AT 0730. ALERT ORIENTED PLEASANT COOPERATIVE. HX OF CVA. APHASIA DYSPHAGIA ON PUREED DIET WITH HONEY THICK LIQUIDS TAKES MEDS WHOLE WITH APPLESAUCE. HAS HAD MORE COUGHING UP OF SECRETIONS THIS A.M. O2 ON AT 1L/M PER N/C. [place] CATH PATENT WITH RED COLOR URINE IN DD BAG. CHANGED TO LEG BAG BUT HAD CLOT IN TUBING. NEW [place] PATENT INSERTED AND UROLOGY HERE. PT. UP IN RECLINER WHEN NOT PARTICIPATING IN THERAPIES. ULTRASOUND DONE THIS AFTERNOON TO CHECK KIDNEY CALCULI ON KUB ALREADY DONE.
[2017-09-09 17:14] VITALS: BP 145/66
[2017-09-09 20:09] VITALS: BP 128/46
[2017-09-10 04:57] LABS: ABSOLUTE BASOPHILS 0.1 thou/uL (0.0-0.2); ABSOLUTE EOSINOPHILS 0.2 thou/uL (0.0-0.7); ABSOLUTE MONOCYTES 0.7 thou/uL (0.0-1.2); ABSOLUTE NEUTROPHILS 4.9 thou/uL (1.6-8.1); BASOPHILS 1.1 %; EOSINOPHILS 2.5 %; HEMATOCRIT 35.9 % (42.0-52.0); HEMOGLOBIN 12.3 gm/dL (14.0-18.0); LYMPHOCYTES 25.2 %; MCH 30.6 pg (26.0-34.0); MCHC 34.2 g/dL (28.0-37.0); MCV 89.6 fL (80.0-100.0); MPV 7.2 fl. (7.2-11.1); NUCLEATED RBCS 0 /100WBC; PLATELET COUNT* 474 thou/uL (150-400); POLYS 62.2 %; RBC 4.01 mil/uL (4.50-6.00); RDW-CV 15.2 % (10.5-14.5); WBC 7.8 thou/uL (4.0-11.0)
[2017-09-10 05:08] LABS: CALCIUM 8.3 mg/dL (8.5-10.1); CREATININE 0.8 mg/dL (0.6-1.3); POTASSIUM 3.6 mmol/L (3.5-5.1)
--- NOTE | 2017-09-10 05:30 | NUR ---
ASSUMED PT CARE AT 1930. PT ALERT, PLEASANT AND COOPERATIVE WITH CARES. HX OF CVA, APHASIA AND DYSPHAGIA. DENIES PAIN. TAKES MEDS WHOLE WITH APPLESAUCE AND HONEY THICK LIQUIDS. ON 1L 02 PER NC. [place] CATHETER TO DD, COURT URINE IN BAG. PT TRANSFERS WITH SBA, GAIT BELT AND WALKER. AT BEDSIDE OVERNIGHT. CALL LIGHT AND FREQUENTLY USED ITEMS WITHIN REACH. HOURLY ROUNDING IN PROGRESS, WILL CONTINUE TO MONITOR.
[2017-09-10 07:55] VITALS: BP 94/53
[2017-09-10 09:08] VITALS: BP 81/40
[2017-09-10 11:39] VITALS: BP 97/56
[2017-09-10 17:05] VITALS: BP 123/86
--- NOTE | 2017-09-10 18:05 | NUR ---
ASSUMED CARE AT 0730. ALERT ORIENTED PLEASANT COOPERATIVE. HX OF CVA AND APHASIA AND DYSPHAGIA. TRANSFERS WITH SBA G BELT AND WALKER AMBULATING TO SHOWER WITH O2 OFF. O2 SATS REMAIN ABOVE 90% FEEDS SELF WITH SET UP AND IS ON PUREED DIET HONEY THICK LIQUIDS TAKES MEDS WHOLE IN APPLESAUCE. BP WAS LOW TODAY SPOKE WITH DR. PEREZ HELD 1200. CARDIAZEM DOSE. INSULIN ORDERS CHANGED BUT PT. CONCERNED ABOUT HIS SUGARS AND REQUESTING JUICES JELLOWS. SL RT. HAND PATENT FOR IV ANTIBIOTICS. HERE. PT. REFUSED O.T. AFTERNOON SESSION BUT DID WORK WITH P.T. AFTER A NAP.
--- NOTE | 2017-09-10 19:23 | NUR ---
[place] PATENT WITH COURT URINE TO DD BAG NO RED TINGED URINE THIS SHIFT.
[2017-09-10 20:21] VITALS: BP 115/61
--- NOTE | 2017-09-11 05:47 | NUR ---
ASSUMED CARES AT 1920. PT ALERT. PLEASANT. APHASIC. HAS [place] CATHETER DD COURT URINE. SALINE LOCK TO RIGHT HAND. TAKES PILLS WHOLE IN APPLESAUCE AND HONEY THICK LIQUIDS. DENIES ANY PAIN. AT BEDSIDE. SLEPT WELL. CALL LIGHT IN REACH AND BED ALARM ON.
[2017-09-11 08:53] VITALS: BP 104/65
--- NOTE | 2017-09-11 12:40 | NUR ---
AM ASSESSMENT AND VITAL SIGNS COMPLETED DOCUMENTED. PT HAS BEEN PLEASANT AND COOPERATIVE THIS MORNING, DENIES DISCOMFORT. PT TRANSFERS FROM BED TO RECLINER WITH MIN ASSIST, GB AND WALKER. PT IS IMPULSIVE AND NEEDS TO BE CLOSELY MONITORED TO PREVENT FALLS. PUREED DIET WITH HONEY THICKENED LIQUIDS HAS BEEN WELL TOLERATED, PT IS ABLE TO TAKE HIS PILLS WHOLE IN APPLESAUCE. PT'S REMAINS WITH HIM MOST OF THE TIME AND IS ABLE TO HELP COMMUNICATE HIS NEEDS. HOURLY ROUNDING AND FALL PRECAUTIONS IN PLACE.
--- NOTE | 2017-09-11 15:40 | NUR ---
SW met with pt while pt was in therapy and reviewed team conference summary. Plan for pt to remain on rehab until next and then pt to dc to SNF next 09/19. Pt/pt in agreement with plan and their first preference is [facility]. SW to follow to assist with safe dc planning and finalizing SNF placement.
[2017-09-11 19:45] VITALS: BP 120/69
--- NOTE | 2017-09-11 23:15 | NUR ---
ASSUMED CARE AT 1930. PATIENT S/P LT CVA WITH APHASIA. MAKES NEEDS KNOWN BY GESTURES. RESTING IN BED AT CHANGE OF SHIFT. TURNS SELF EASILY IN BED. TAKES PILLS WHOLE IN APPLESAUCE AND FOLLOWED BY HONEY THICK LIQUIDS. DECLINES COLACE. [place] DRAINS TEA COLORED URINE. HOURLY ROUNDS CONTINUE. BED ALARM ON. CALL LITE IN REACH.
[2017-09-12 00:26] VITALS: BP 125/67
--- NOTE | 2017-09-12 06:58 | NUR ---
RESTED IN BED ALL SHIFT. PREFERS TO SLEEP ON RIGHT SIDE. MOVES WELL IN BED. [place] DRAINS TEA COLORED URINE. NO C/O PAIN, NO APPARENT DISTRESS NOTED. TAKES PILLS WHOLE WITH APPLESAUCE AND FOLLOWS WITH HONEY THICKENED LIQUIDS. HOURLY ROUNDS CONTINUE. BED ALARM ON. CALL LITE IN REACH.
[2017-09-12 07:50] VITALS: BP 128/89
--- NOTE | 2017-09-12 16:55 | NUR ---
PT HAS PARTICIPATED WITH THERAPIES AND CALLS FOR ASSIST TO BATHROOM. PT AMBULATES WELL WITH GAITBELT AND WALKER AND MIN ASSIST OF 1. [place] TO DD WITH CLEAR COURT URINE PRESENT. PT DRINKS HONEY THICK LIQUIDS WELL. PT APHASIC BUT ABLE TO MAKE NEEDS KNOWN AND IS ALERT AND ORIENTATED. PT CONTINUES TO PROGRESS TOWARDS GOALS AND HOURLY ROUNDING CONTINUES.
[2017-09-12 20:09] VITALS: BP 120/64
[2017-09-13 04:00] LABS: ABSOLUTE BASOPHILS 0.1 thou/uL (0.0-0.2); ABSOLUTE EOSINOPHILS 0.2 thou/uL (0.0-0.7); ABSOLUTE LYMPHOCYTES 1.7 thou/uL (0.8-5.3); ABSOLUTE MONOCYTES 0.9 thou/uL (0.0-1.2); ABSOLUTE NEUTROPHILS 8.3 thou/uL (1.6-8.1); EOSINOPHILS 1.6 %; HEMATOCRIT 36.7 % (42.0-52.0); HEMOGLOBIN 12.1 gm/dL (14.0-18.0); LYMPHOCYTES 15.5 %; MCH 29.9 pg (26.0-34.0); MCHC 32.9 g/dL (28.0-37.0); MONOCYTES 7.9 %; NUCLEATED RBCS 0 /100WBC; RBC 4.03 mil/uL (4.50-6.00); RDW-CV 15.7 % (10.5-14.5); WBC 11.2 thou/uL (4.0-11.0)
[2017-09-13 04:15] LABS: CALCIUM 8.3 mg/dL (8.5-10.1); CREATININE 0.9 mg/dL (0.6-1.3); POTASSIUM 3.7 mmol/L (3.5-5.1)
[2017-09-13 04:17] LABS: PLATELET COUNT* 397 thou/uL (150-400)
--- NOTE | 2017-09-13 05:19 | NUR ---
ASSUMED PT CARE AT 1930. PT S/P LEFT CVA WITH APHASIA. PT IN BED AT CHANGE OF SHIFT. MAKES NEEDS KNOWN BY GESTURING. PT UNDERSTANDS QUESTIONS AND CAN ANSWER YES OR NO. DENIES PAIN. TAKES PILLS WHOLE IN APPLESAUCE FOLLOWED BY HONEY THICK LIQUIDS. [place] TO DD DRAINING TEA COLORED URINE. CAN TURN SELF IN BED, PREFERS TO SLEEP ON RIGHT SIDE. PT AT BEDSIDE OVERNIGHT. CALL LIGHT AND FREQUENTLY USED ITEMS WITHIN REACH. BED ALARM ON FOR SAFETY. HOURLY ROUNDING IN PROGRESS, WILL CONTINUE TO MONITOR.
[2017-09-13 07:49] VITALS: BP 136/52
--- NOTE | 2017-09-13 19:35 | NUR ---
PT HAS BEEN UP TO RECLINER AND CALLS TO AMBULATE WITH WALKER AND 1 ASSIST. [place] TO DD WITH BLOOD TINGED URINE PRESENT.PT HAS C/O PAIN OF [place]. BLADDER IRRIGATED WITH NO RESIDUAL. PERICARE GIVEN WITH BARRIER CREAM APPLIED TO TIP OF PENIS AND STATLOCK MOVED TO LT THIGH.PT APPEARED TO HAVE SOME RELIEF OF DISCOMFORT. PT DENIES OTHER PAIN OR DISCOMFORT. PT REMAINS ALERT AND ORIENTATED AND CONTINUES TO PROGRESS TOWARDS GOALS. HOURLY ROUNDING CONTINUES.
[2017-09-13 20:04] VITALS: BP 128/56
--- NOTE | 2017-09-14 06:52 | NUR ---
ASSUMED CARE OF PATIETNT AT APPROXIIMATELY 1999. PATIENT A/O X 4 BUT FORGETFUL. PATIENT UP WITH ONE, GAITBELT, AND WALKER. PATIENT HAS RIGHT SIDED WEAKNESS AND SEVERE APHAGIA/DYSPHAGIA. PATIENT HAS HONEY-THICKENED LIQUIDS AND PUREED DIET. HE ALSO TAKES HIS MEDICATIONS WHOLE WITH APPLESAUCE. PATIENT IS AN ACCUCHECK AC/HS WITH LEVEMIR AND LISPRO INSULIN INDICATED. PATIENT IS A SELF ARORA. PATIENT CONTINUES TO HAVE [place] CATHETER WITH YELLOW URINE OUTPUT. PATIENT DID NOT C/O ANY DISCOMFORT OF ANY KIND, INCLUDING ANY PAIN IN HIS PENIS FROM THE [place] CATHETER. IS AT BEDSIDE AND SLEEPS OVERNIGHT IN PATIENT'S ROOM. HOURLY ROUNDS PERFORMED. NURSING TO FOLLOW-UP NECESSARY. ALL FALL PRECAUTIONS IN PLACE, INCLUDING CALL LIGHT WITHIN REACH. WILL CONTINUE TO MONITOR CLOSELY.
[2017-09-14 08:30] VITALS: BP 145/79
[2017-09-14 12:00] VITALS: BP 129/44
--- NOTE | 2017-09-14 15:29 | NUR ---
ASSUMED CARE AT 0730. ALERT ORIENTED, PLEASANT COOPERATIVE. HX OF CVA WITH RT. SIDE WEAKNESS. TRANSFERS WITH SBA G BELT WALKER. AND AMBULATES TO BR TO HAVE BM. [place] PATENT WITH COURT URINE TO DD BAG. TAKES MEDS WITH APPLESAUCE WITHOUT DIFFICULTY. FEEDS SELF WITH SET UP ON PUREED DIET HONEY THICK LIQUIDS. PARTICIPATING IN THERAPIES THROUGHOUT THE DAY. MEDICATED WITH TYLENOL FOR GENERALIZED DISCOMFORT RELATED TO [place] CATH. HERE AT BEDSIDE ASSISTS WITH PT. CARES. USES CALL LIGHT APPROPRIATELY FOR ASSISTANCE. GESTURES POINTS TO MAKE NEEDS KNOWN. DR. PEREZ ROUNDED THIS A.M.
[2017-09-14 16:34] VITALS: BP 113/57
[2017-09-14 20:00] VITALS: BP 117/42
--- NOTE | 2017-09-15 05:33 | NUR ---
ASSUMED CARES AT 1920. ALERT. PLEASANT. APHASIC. CAN MAKE NEEDS KNOWN BY GESTURES. C/O PAIN TO LOWER ABD. TYLENOL GIVEN. TAKES PILLS WHOLE IN APPLESAUCE AND HONEY THICK LIQUIDS. [place] CATHETER DD COURT URINE. HE IS A MIN ASSIST WITH GAIT BELT AND WALKER. SLEPT WELL MOST OF THE NIGHT. CALL LIGHT IN REACH.
[2017-09-15 05:38] LABS: ABSOLUTE BASOPHILS 0.1 thou/uL (0.0-0.2); ABSOLUTE EOSINOPHILS 0.2 thou/uL (0.0-0.7); ABSOLUTE LYMPHOCYTES 2.3 thou/uL (0.8-5.3); ABSOLUTE MONOCYTES 0.7 thou/uL (0.0-1.2); ABSOLUTE NEUTROPHILS 6.6 thou/uL (1.6-8.1); BASOPHILS 1.1 %; EOSINOPHILS 2.4 %; HEMATOCRIT 37.9 % (42.0-52.0); HEMOGLOBIN 12.8 gm/dL (14.0-18.0); LYMPHOCYTES 23.4 %; MCH 30.2 pg (26.0-34.0); MCHC 33.7 g/dL (28.0-37.0); MCV 89.6 fL (80.0-100.0); MONOCYTES 6.8 %; MPV 7.3 fl. (7.2-11.1); NUCLEATED RBCS 0 /100WBC; PLATELET COUNT* 351 thou/uL (150-400); POLYS 66.3 %; RBC 4.23 mil/uL (4.50-6.00); RDW-CV 15.7 % (10.5-14.5); WBC 9.9 thou/uL (4.0-11.0)
[2017-09-15 05:48] LABS: CALCIUM 8.5 mg/dL (8.5-10.1); CREATININE 0.8 mg/dL (0.6-1.3); POTASSIUM 3.2 mmol/L (3.5-5.1)
[2017-09-15 07:40] VITALS: BP 116/87
--- NOTE | 2017-09-15 16:21 | NUR ---
ASSUMED CARE AT 0730. ALERT ORIENTED PLEASANT COOPERATIVE. HX OF CVA RT. SIDE WEAKNESS. TRANSFERS WITH SBA G BELT AND WALKER AND AMBULATES TO BR HAD 3 BMS DOFT FORMED TODAY ABLE TO DO HYGEINE AND CLOTHING ADJUSTMENTS. [place] PATENT WITH COURT URINE TO DD BAG. PT. IS APHASIC BUT ABLE TO MAKE NEEDS KNOWN, DYPHAGIA ON NECTAR LIQUIDS PUREED DIET TAKES MEDS WHOLE IN APPLESAUCE WITHOUT DIFFICULTY. USES CALL LIGHT APPROPRIATELY FOR ASSIST. WANTS TO DRINK MORE JUICES IS TIRED OF THICK LIQUIDS. ACCUCHECK WAS HIGH AC LUNCH. FEEDS SELF WITH SET UP. DR. PEREZ HERE ROUNDING IN A.M. HASNT BEEN HERE SINCE YESTERDAY WILL COME IN A.M. TOMORROW PT.IS AWARE.
[2017-09-15 17:09] VITALS: BP 160/68
[2017-09-15 19:57] VITALS: BP 123/53
--- NOTE | 2017-09-16 05:01 | NUR ---
ASSUMED CARES AT 1915. PT ALERT. PLEASANT. APHASIC. TRIES TO MAKE NEEDS KNOWN WITH GESTURES SPEECH IS MOSTLY GARBLED. DENIES ANY PAIN. TAKES PILLS WHOLE IN APPLESAUCE WITH HONEY THICK LIQUIDS. [place] CATHETER DD TEA COLORED URINE. PT SLEPT MOST OF THE NIGHT. CALL LIGHT IN REACH.
[2017-09-16 07:30] VITALS: BP 153/67
--- NOTE | 2017-09-16 15:04 | NUR ---
ASSUMED CARE AT 0730. ALERT ORIENTED PLEASANT COOPERATIVE. HX OF CVA WITH RT. SIDE WEAKNESS.
--- NOTE | 2017-09-16 15:16 | NUR ---
ASSUMED CARE AT 0730. ALERT ORIENTED PLEASANT COOPERATIVE. HX OF CVA RT. SIDE WEAKNESS. TRANSFERS WITH SBA G BELT WALKER AND AMBULATES TO RECLINER. DYSPHAGIA APHASIA ABLE TO MAKE NEEDS KNOWN BY GESTURES POINTS. TAKES MEDS WITH APPLESAUCE AND IS ON PUREED DIET HONEY LIQUIDS. PARTICIPATING IN THERAPIES. HAD 2 BMS NO VOID YET SINCE CATHETER DCD AT 0530. NEED U/A WHEN VOIDING. MEDICATED WITH TYLENOL FOR RT. SHOULDER PAIN. ARRIVED AFTER LUNCH AROUND 1330. USES CALL LIGHT APPROPRIATELY FOR ASSIST. DR. KINGSTON ROUNDED ORDERS RECEIVED.
--- NOTE | 2017-09-16 16:49 | NUR ---
SW faxed referral for SNF to pt/family preference of [facility] for pt dc on 09/19. SW to continue to follow to assist with safe dc planning.
--- NOTE | 2017-09-16 17:22 | NUR ---
PT. UNABLE TO VOID STRAIGHT CATHED FOR 300CCS COURT CLEAR URINE SPECIMEN TO LAB SENT. PT. WAS UNCOMFORTABLE BLADDER SCAN WAS 389CCS. DR. KINGSTON GAVE ORDERS.RESTED IN BED FOR 1 1/2 HRS AFTER THERAPY COMPLETED.
[2017-09-16 17:25] LABS: URINE BILIRUBIN NEGATIVE (Negative); URINE BLOOD 2+ (Negative); URINE CLARITY CLEAR; URINE COLOR YELLOW; URINE GLUCOSE-RANDOM NEGATIVE (Negative); URINE KETONES NEGATIVE (Negative); URINE LEUKOCYTES-REFLEX NEGATIVE (Negative); URINE NITRITE-REFLEX NEGATIVE (Negative); URINE PROTEIN 1+ (Negative); URINE SPECIFIC GRAVITY 1.025 (1.005-1.030)
[2017-09-16 17:30] VITALS: BP 141/55
[2017-09-16 17:44] LABS: BACTERIA-REFLEX None Seen /HPF (None Seen); CASTS None Seen /LPF (None Seen); CRYSTALS None Seen /LPF (None Seen); SQUAMOUS 0-3 Few /LPF (0-3); URINE RBC >20 Many /HPF (0-2); URINE WBC-REFLEX None Seen /HPF (0-5)
[2017-09-16 20:17] VITALS: BP 136/55
--- NOTE | 2017-09-17 07:46 | NUR ---
ASSUMED CARES AT 1920. PT TAKES PILLS WHOLE IN APPLESAUCE AND HONEY THICK LIQUIDS. HE IS A MIN ASSIST WITH GAIT BELT AND WALKER. AT 0600 PT WAS ABLE TO VOID X 2 IN TOILET. HOWEVER PVR STILL SHOWED 700 CC. PT WAS STRAIGHT CATHED AND HAD 700 CC DARK YELLOW URINE OUT. SPOKE WITH DR LANIER, ORDER TO CONTINUE VOIDING TRIAL FOR ANOTHER 24 HRS. STRAIGHT CATH IF BLADDER SCAN > 500 CC. ALSO ORDER FOR CXR. O2 SAT THIS AM WAS 89-90% WITH COURSE LUNGS. O2 2L NC PLACED WITH SATS IMPROVING. CALL LIGHT IN REACH AND BED ALARM ON.
[2017-09-17 08:00] VITALS: BP 115/84
--- NOTE | 2017-09-17 16:07 | NUR ---
Received approval/acceptance from Serjio at [facility] to accept pt for SNF at dc on . SW to continue to follow to assist with finalizing safe dc plan.
[2017-09-17 16:38] VITALS: BP 106/54
--- NOTE | 2017-09-17 16:56 | NUR ---
ASSUMMED CARE OF PT AT 0730, PT TRANSFERS WITH SBA GB AND WALKER, AHASIC, GESTURES, PT DENIES NAUSEA, DENIES PAIN, PT HAD LARGE FORMED BM X 1 THIS SHIFT, VOIDED IN SMALL AMOUNT X 2, PT STARTED ON FLOMAX THIS SHIFT, BLADDER SCANNED AT 1400 FOR 233 CC, PT ENCOURAGED TO DRINK FLUIDS, VIDEO SWALLOW DONE THIS AM AND DIET CHANGED TO NECTAR THICK LIQUIDS, O2 ON AT 2L AND PT SATS OF 90%, PT TACHY THIS AM BUT NORMAL THIS PM, PARTICIPATED IN ALL THERAPIES, HOURLY ROUNDING COMPLETED, ASSESSMENT COMPLETE, WILL CONTINUE TO MONITER.
--- NOTE | 2017-09-17 20:20 | NUR ---
AWAKENED FOR HS REASSESSMENT AND MED PASS. AT BEDSIDE AND STAYS ALL NIGHT. TOOK MEDS WHOLE ONE AT A TIME WITH APPLESAUCE FOLLOWED WITH NECTAR THICKENED CRANBERRY JUICE. DENIES PAIN.
[2017-09-17 20:33] VITALS: BP 91/32
--- NOTE | 2017-09-18 05:11 | NUR ---
BLADDER SCAN AT MIDNIGHT SHOWED 389 ML. PT DIDN'T WANT TO GO TO THE BATHROOM TO TRY TO VOID AT THAT TIME. WILL DO ANOTHER BLADDER SCAN BEFORE THE END OF THE SHIFT. HOURLY ROUNDING IN PROGRESS.
[2017-09-18 07:59] VITALS: BP 114/66
[2017-09-18 13:00] VITALS: BP 93/50
--- NOTE | 2017-09-18 15:17 | NUR ---
SW met with pt and pt bedside to review team conference summary. Plan for pt to dc to [facility] tomorrow as was already approved. Pt and pt in agreement with plan. SW to continue to follow to assist with safe dc planning.
--- NOTE | 2017-09-18 16:14 | H ---
[address] [address] HISTORY AND PHYSICAL Name: PER MARKS Room: [address] IN .R.#: [id number] Admission: 08/23/17 Attend Phys: Daja Livingston DO Discharge: Date of : 42 Report #: [id number] THIS REPORT FOR: //name// CC: Iggy Livingston DATE OF SERVICE: 08/23/2017 DIAGNOSIS: Cerebrovascular accident. HISTORY OF PRESENT ILLNESS: This is a right-hand dominant male status post cerebrovascular accident with residual left upper and lower hemiparesis, aphasia and dysphagia. Previous level of function was independent to modified independent with activities of daily living. Current level of function is minimum to moderate assistance of 1-2 depending on therapies, activities and time of day. Estimated length of stay is 14-16 days with discharge disposition to home setting. He has supportive family. NO CHANGES SINCE PREADMISSION SCREENING. PAST MEDICAL HISTORY: Unchanged from previous. PAST SURGICAL HISTORY: Unchanged from previous. MEDICATIONS: Reviewed, reconciled and are available in the MAR. REVIEW OF SYSTEMS: A 14-point review of systems is done and is negative except as mentioned in HPI. PHYSICAL EXAMINATION: GENERAL: Alert, oriented, no apparent distress. VITAL SIGNS: Reviewed and are stable. HEENT: Atraumatic, normocephalic. Pupils equal, round, reactive. ABDOMEN: Soft, nontender, nondistended. NEUROLOGIC: Cranial nerves 2-12 grossly intact. SKIN: Warm and dry. ABDOMEN: Soft, nontender, nondistended. ASSESSMENT: 1. Cerebrovascular accident, APHASIA, DYSPHAGIA, IN A RHD MALE 2. Multiple medical comorbidities requiring acute medical care on a daily basis with physical and occupational and speech and language pathology. PLAN: 1. ADMISSION TO INPATIENT REHAB 2. PT, [place] [address] HISTORY AND PHYSICAL Name: PER MARKS Room: [address] IN [facility].#: [id number] Admission: 08/23/17 Attend Phys: Daja Livingston DO Discharge: Date of : 42 Report #: [id number] 3. HMS TO MANAGE MEDICAL NEEDS 4. POC PENDING, TEAM WEEKELY <ELECTRONICALLY SIGNED> By: Daja Livingston DO 09/18/17 1614 [id number] Livingston DO /nt
--- NOTE | 2017-09-18 18:00 | NUR ---
ASSUMED CARE AT 0730 PATIENT ALERT/ORIENTED, NO COMPLAINTS OF PAIN THIS SHIFT. UP WITH ASSIST OF ONE AND WALKER/GAIT BELT. PARTICIPATED IN ALL THERAPIES TODAY, TO DINING ROOM FOR MEALS. HOURLY ROUNDING COMPLETED, BED/CHAIR ALARMS IN PLACE, CALL LIGHT IN REACH. BLADDER SCAN AT 1200 FOR 500CC, PATIENT UNABLE TO URINATE, AT 1300 SCAN 700CC. USING STERILE TECHNIQUE STRAIGHT CATH WITH TOTAL OF 550CC OUT. TO BE DISCHARED TO [facility] TOMORROW. CONTINUE WITH CURRENT PLAN OF CARE
[2017-09-18 19:45] VITALS: BP 108/71
--- NOTE | 2017-09-18 19:50 | NUR ---
SITTING UP IN CHAIR. ANXIOUS AND SOB. WANTING TO GO TO BED. 02 SAT 91% ON ROOM AIR. PLACED 02 NC AT 2 LITERS. DENIES PAIN. AT BEDSIDE AND WILL BE STAYING THE NIGHT. TOOK MEDS WHOLE ONE AT A TIME WITH APPLESAUCE FOLLOWED WITH NECTAR THICKENED JUICE.
[2017-09-18] MEDS ORDERED: BENICAR40 MG PO ×2 (23:57→23:58)
[2017-09-19] MEDS ORDERED: COZAAR 50 MG TA50 M2 PER TUBE
[2017-09-19] MEDS ORDERED: ELIQUIS5 MG PER TUBE (00:03)
[2017-09-19] MEDS ORDERED: FLOMAX0.4 MG PER TUBE (00:05)
[2017-09-19] MEDS ORDERED: LIPITOR 20 MG T20 M1 PO (00:08)
[2017-09-19] MEDS ORDERED: LEVEMIR SUBQ (00:10)
[2017-09-19] MEDS ORDERED: SERTRALINE HCL50 MG PO (00:13)
[2017-09-19] MEDS ORDERED: PROVIGIL 200 M200 M1 PER TUBE (00:14)
[2017-09-19 08:12] VITALS: BP 119/53
[2017-09-19 10:53] VITALS: BP 117/56
[2017-09-19] MEDS ORDERED: HUMALOG100 UNIT/1 SUBQ (11:26)
[2017-09-19 13:09] VITALS: BP 117/56
--- NOTE | 2017-09-19 13:21 | NUR ---
Pt to dc to SNF [facility] today, 09/19. THOMAS called and spoke with Serjio in admissions who arranged for transportation at 13:00. THOMAS faxed final orders and med list and copied chart/prepared packet for continuation of care.
[2017-09-19 13:29] VITALS: BP 98/48
--- NOTE | 2017-09-19 14:40 | NUR ---
PATIENT DISCHARGED TO [facility], REPORT CALLED TO SOLE. PATIENT ALERT/ORIENTED, NO COMPLAINTS OF PAIN THIS SHIFT, DID PARTICIPATE IN THERAPIES THIS AM, TO DINING ROOM FOR MEALS. HOURLY ROUNDING COMPLETED, BED/CHAIR ALARMS IN PLACE, CALL LIGHT IN REACH. PATIENT LEFT FLOOR AT 1315 VIA W/C VAN WITH STAFF FROM [facility]. LEFT WITH ALL BELONGING. ALL QUESTIONS ANSWERED.
--- NOTE | 2017-10-22 14:42 | D ---
[address] [address] DISCHARGE SUMMARY Name: KENDRICKPER Room: [address] IN M.R.#: [id number] Admission: 08/23/17 Attend Phys: Daja Livingston DO Discharge: 09/19/17 Date of : 42 Report #: [id number] THIS REPORT FOR: //name// CC: Iggy Livingston DATE OF SERVICE: 09/19/2017 DISCHARGE DIAGNOSIS: Cerebrovascular accident. DISCHARGE DISPOSITION: To a skilled level of care for continued subacute rehabilitation. He is a full code. REHABILITATION PROGNOSIS: Fair. He will continue with physical and occupational therapy as well as speech and language pathology. He is a fall precaution. He is also aphasic and has difficulty communicating. Follow with his diet, heart healthy ADA. O2 per nasal cannula as needed to keep saturations greater than 90%. MEDICATIONS: Reviewed and reconciled by myself and are available in the MAR. He does have ongoing right upper and lower extremity hemiparesis. He also has expressive and receptive aphasia. He does have some ongoing difficulty swallowing and is being maintained on nectar-thick diet with pureed foods. DISCHARGE PHYSICAL EXAMINATION: GENERAL: Alert, oriented, no apparent distress. VITAL SIGNS: Reviewed and are stable. HEENT: Head is atraumatic, normocephalic. Pupils equal, round, reactive. ABDOMEN: Soft, nontender, nondistended. NEUROLOGIC: Right upper and lower extremity hemiparesis is noted. SKIN: Warm and dry. No rashes or lesions noted. <ELECTRONICALLY SIGNED> By: Daja Livingston DO 10/22/17 1442 1327 [id number] Livingston DO /nt
== END 2017-09-19 13:17 | DRG 65 ==
LOC: M.REH 17:29
PROVIDERS: Family Medicine; Internal Medicine; Physician Assistant; ADMIT Physical Medicine & Rehabilitation
DX: I63.9 Cerebral infarction, unspecified (principal); G81.94 Hemiplegia, unspecified affecting left nondominant side; N39.0 Urinary tract infection, site not specified; R47.01 Aphasia; R13.10 Dysphagia, unspecified; R00.1 Bradycardia, unspecified; I48.91 Unspecified atrial fibrillation; I10 Essential (primary) hypertension; I25.10 Atherosclerotic heart disease of native coronary artery without angina pectoris; E78.5 Hyperlipidemia, unspecified; R53.1 Weakness; E11.65 Type 2 diabetes mellitus with hyperglycemia; E87.6 Hypokalemia; I65.22 Occlusion and stenosis of left carotid artery; E11.649 Type 2 diabetes mellitus with hypoglycemia without coma; B96.5 Pseudomonas (aeruginosa) (mallei) (pseudomallei) as the cause of diseases classified elsewhere; R31.0 Gross hematuria; N20.0 Calculus of kidney; N40.1 Benign prostatic hyperplasia with lower urinary tract symptoms; R33.8 Other retention of urine; Z87.891 Personal history of nicotine dependence; Z90.49 Acquired absence of other specified parts of digestive tract; Z79.82 Long term (current) use of aspirin; Z79.4 Long term (current) use of insulin; Z79.899 Other long term (current) drug therapy

== ENCOUNTER 2017-09-26 16:46 | Inpatient (IN) | payer MEDICARE, OTHER ==
[~2017-09-26] VITALS: Ht 167.6 cm; Wt 66.2 kg
[~2017-09-26 16:46] MED LIST changes: +BENICAR40 MG PO; +COZAAR 50 MG TA50 M2 PER TUBE; +DILTIAZEM HCL90 MG PER TUBE; +ELIQUIS5 MG PER TUBE; +ELIQUIS5 MG PO; +FLOMAX0.4 MG PER TUBE; +HUMALOG100 UNIT/1 SUBQ; +LEVEMIR SUBQ; +LEVEMIR100 UNIT/1 SUBQ; +LIPITOR 20 MG T20 M1 PO; +OMEGA-31000 M1 PER TUBE; +PRAVACHOL40 MG PO; +PROVIGIL 200 M200 M1 PER TUBE; +SERTRALINE HCL50 MG PO
[2017-09-26] MEDS ORDERED: AUGMENTIN 875-1 EACH PO (17:01)
[2017-09-26] MEDS ORDERED: MAGOX 400400 MG PER TUBE (17:05)
[2017-09-26] MEDS ORDERED: AMBIEN 5 MG TABL5 M1 PO (17:06)
[2017-09-26] MEDS ORDERED: FLORASTOR250 MG PO (17:08)
[2017-09-26 19:50] VITALS: BP 163/94
[2017-09-27 04:37] LABS: HEMATOCRIT 35.4 % (42.0-52.0); MCH 30.2 pg (26.0-34.0); MCHC 33.9 g/dL (28.0-37.0); MCV 89.1 fL (80.0-100.0); MPV 7.2 fl. (7.2-11.1); RBC 3.97 mil/uL (4.50-6.00); RDW-CV 16.3 % (10.5-14.5); WBC 6.3 thou/uL (4.0-11.0)
[2017-09-27 05:46] LABS: CALCIUM 8.3 mg/dL (8.5-10.1); CREATININE 0.8 mg/dL (0.6-1.3); POTASSIUM 3.3 mmol/L (3.5-5.1)
[2017-09-27 06:00] VITALS: BP 153/65
[2017-09-27 07:30] VITALS: BP 152/68
[2017-09-27 08:00] VITALS: BP 152/68
[2017-09-27 20:21] VITALS: BP 122/41
[2017-09-28 07:15] VITALS: BP 111/57
[2017-09-28 16:59] VITALS: BP 119/65
[2017-09-28 20:00] VITALS: BP 111/45
[2017-09-29 06:20] VITALS: BP 120/54
[2017-09-29 07:30] VITALS: BP 125/48
[2017-09-29 11:50] VITALS: BP 157/70
[2017-09-29 16:50] VITALS: BP 170/68
[2017-09-29 20:00] VITALS: BP 114/59; BP 145/59
[2017-09-30 00:40] VITALS: BP 115/57
[2017-09-30 06:45] VITALS: BP 142/49
[2017-09-30 07:30] VITALS: BP 129/54
[2017-09-30 17:04] VITALS: BP 157/75
[2017-09-30 18:49] VITALS: BP 158/65
[2017-09-30 19:55] VITALS: BP 88/52
[2017-10-01 06:08] VITALS: BP 153/76
[2017-10-01 07:30] VITALS: BP 123/57
[2017-10-01 12:30] VITALS: BP 134/59
[2017-10-01 17:50] VITALS: BP 154/60
[2017-10-01 19:38] VITALS: BP 133/53
[2017-10-02 08:41] VITALS: BP 138/71
[2017-10-02 20:27] VITALS: BP 145/67
[2017-10-03 07:51] VITALS: BP 177/80
[2017-10-03 20:00] VITALS: BP 134/71
[2017-10-04] VITALS (9 sets, daily range): BP systolic 126–157; BP diastolic 58–75
--- NOTE | 2017-10-04 10:40 | EKG ---
[place] [address] ELECTROCARDIOGRAM REPORT Name: PER MARKS Room: [address] ADM IN M.R.#: [id number] Admission: 09/26/17 Attend Phys: Daja Livingston DO Discharge: Date of : 42 Report #: [id number] THIS REPORT FOR: //name// [facility] Test Date: 2017-10-04 Test Time: 10:18:01 Pat Name: PER MARKS Department: Room: [address] Gender: M Purchasing And Claims Supervisor: : 1940 Requested By: Dominic Vanessa Order Number: [id number] Antoine MD: Ammon Harding Measurements Intervals [place] Rate: 75 P: 28 NE: 168 QRS: 58 QRSD: 76 T: 246 QT: 481 QTc: 538 Interpretive Statements Sinus rhythm Abnormal R-wave progression, early transition Borderline repolarization abnormality Prolonged QT interval Compared to ECG 01/11/2011 11:39:44 rate slowed Electronically Signed On 10-04-2017 10:40:32 TAR WORKER by Ammon Harding [email or web address] <ELECTRONICALLY SIGNED> By: Ammon Harding MD, [facility] 10/04/17 1040 1018 [id number] Ammon Harding MD, [facility] /EPI
[2017-10-04 12:06] LABS: HEMATOCRIT 40.5 % (42.0-52.0); HEMOGLOBIN 13.3 gm/dL (14.0-18.0); MCH 29.9 pg (26.0-34.0); MCHC 32.9 g/dL (28.0-37.0); MCV 90.9 fL (80.0-100.0); MPV 6.8 fl. (7.2-11.1); RBC 4.45 mil/uL (4.50-6.00); RDW-CV 16.5 % (10.5-14.5); WBC 6.1 thou/uL (4.0-11.0)
[2017-10-04 12:14] LABS: INR 1.3; PROTIME 12.2 Seconds (9.20-11.50)
[2017-10-04 12:15] LABS: CALCIUM 8.9 mg/dL (8.5-10.1); CREATININE 0.9 mg/dL (0.6-1.3); POTASSIUM 3.1 mmol/L (3.5-5.1)
[2017-10-05 08:15] VITALS: BP 114/56
[2017-10-05 20:08] VITALS: BP 119/57
[2017-10-06 08:03] VITALS: BP 121/60
[2017-10-06 20:13] VITALS: BP 123/60
[2017-10-07 08:09] VITALS: BP 98/51
[2017-10-07 10:00] VITALS: BP 128/98
[2017-10-07 11:45] VITALS: BP 124/75
[2017-10-07 13:15] VITALS: BP 102/59
[2017-10-07 20:39] VITALS: BP 134/58
[2017-10-08] VITALS (7 sets, daily range): BP systolic 91–144; BP diastolic 52–87
[2017-10-08 13:13] LABS: ABSOLUTE BASOPHILS 0.1 thou/uL (0.0-0.2); ABSOLUTE LYMPHOCYTES 1.5 thou/uL (0.8-5.3); ABSOLUTE NEUTROPHILS 7.5 thou/uL (1.6-8.1); BASOPHILS 0.8 %; EOSINOPHILS 0.3 %; HEMATOCRIT 39.3 % (42.0-52.0); HEMOGLOBIN 13.1 gm/dL (14.0-18.0); LYMPHOCYTES 14.9 %; MCH 30.3 pg (26.0-34.0); MCHC 33.2 g/dL (28.0-37.0); MCV 91.2 fL (80.0-100.0); MONOCYTES 10.2 %; MPV 7.7 fl. (7.2-11.1); NUCLEATED RBCS 0 /100WBC; PLATELET COUNT* 298 thou/uL (150-400); POLYS 73.8 %; RBC 4.31 mil/uL (4.50-6.00); WBC 10.2 thou/uL (4.0-11.0)
[2017-10-08 13:39] LABS: ALBUMIN 2.6 g/dL (3.4-5.0); CALCIUM 8.9 mg/dL (8.5-10.1); CREATININE 0.8 mg/dL (0.6-1.3); POTASSIUM 3.4 mmol/L (3.5-5.1); TOTAL BILIRUBIN 0.7 mg/dL (<0.1-1.0)
--- NOTE | 2017-10-08 15:29 | EKG ---
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 : 1940 Requested By: Shaan Duff Order Number: [id number] Reading MD: Benson Tatum Measurements Intervals [place] Rate: 141 P: [place]: QRS: 69 QRSD: 60 T: -76 QT: 332 QTc: 509 Interpretive Statements Atrial flutter with predominant 2:1 AV block Repolarization abnormality, prob rate related Prolonged QT interval Compared to ECG 10/04/2017 10:18:01 2:1 AV block now present Sinus rhythm no longer present Electronically Signed On 10-08-2017 15:29:38 DURABILITY ENGINEER by Benson [email or web address] <ELECTRONICALLY SIGNED> By: Benson Tatum MD, FACC 10/08/17 1529 1509 1509 Benson Tatum MD, FAC /EPI
[2017-10-08 18:25] LABS: URINE BILIRUBIN NEGATIVE (Negative); URINE BLOOD NEGATIVE (Negative); URINE CLARITY CLEAR; URINE COLOR YELLOW; URINE GLUCOSE-RANDOM NEGATIVE (Negative); URINE KETONES NEGATIVE (Negative); URINE LEUKOCYTES-REFLEX NEGATIVE (Negative); URINE NITRITE-REFLEX NEGATIVE (Negative); URINE PROTEIN 2+ (Negative); URINE SPECIFIC GRAVITY 1.015 (1.005-1.030); URINE UROBILINOGEN 0.2 E.U./dl (0.2-1.0)
[2017-10-08 18:35] LABS: MUCUS None Seen strn/LPF (None Seen); SQUAMOUS >10 Many /LPF (0-3)
[2017-10-08 18:36] LABS: BACTERIA-REFLEX 1-9 Few /HPF (None Seen); HYALINE CASTS 0-3 Few /LPF (None Seen); URINE RBC 0-2 Rare /HPF (0-2); URINE WBC-REFLEX None Seen /HPF (0-5)
[2017-10-08 18:37] LABS: CRYSTALS None Seen /LPF (None Seen); YEAST-REFLEX Present (None Seen)
[2017-10-09 07:30] VITALS: BP 105/50; BP 118/84; BP 141/57
[2017-10-09 13:13] LABS: CREATININE 0.9 mg/dL (0.6-1.3); MAGNESIUM 1.9 mg/dL (1.8-2.4); POTASSIUM 3.9 mmol/L (3.5-5.1)
[2017-10-09 19:20] VITALS: BP 126/66
[2017-10-10 08:08] VITALS: BP 113/58
[2017-10-10 19:40] VITALS: BP 114/75
[2017-10-11] MEDS ORDERED: PEPCID20 MG PER TUBE (01:47)
[2017-10-11] MEDS ORDERED: LIPITOR 20 MG T20 M1 PER TUBE (01:49)
[2017-10-11] MEDS ORDERED: LORAZEPAM 0.50.5 M1 PER TUBE (01:50)
[2017-10-11 08:00] VITALS: BP 169/78
[2017-10-11] MEDS ORDERED: K PHOS PER TUBE (10:09)
[2017-10-11 16:05] VITALS: BP 169/78
--- NOTE | 2017-10-22 14:42 | PLAN ---
[address] [address] REHAB UNIT PLAN OF CARE Name: PER MARKS Room: [address] IN M.R.#: [id number] Admission: 09/26/17 Attend Phys: Daja Livingston DO Discharge: 10/11/17 Date of : 41 Report #: [id number] THIS REPORT FOR: //name// CC: Iggy Livingston OVERALL PLAN OF CARE This is a 76-year-old right-hand dominant male, status post acute hospitalization at [facility] from his subacute rehabilitative stay due to aspiration pneumonia. He does have previous history of recent stroke with ongoing right upper and lower extremity hemiparesis, aphasia, dysphagia and is now currently on antibiotics. He does continue to be on thickened liquids. Medical prognosis is fair. Rehabilitation prognosis is fair. Estimated length of stay is 14-16 days with discharge disposition to the home setting with supportive family. Previous level of function on discharge was minimum to moderate assistance depending on therapy, activity and time of day. Current level of function is minimum to maximum assistance depending on therapy, activity and time of day. Physical therapy will see the patient 60-90 minutes per day, 5 days per week, working on upper and lower body strength, balance, coordination, navigation. Occupational therapy will work with the patient 60-90 minutes per day, 5 days per week, working on upper and lower body strength, balance, coordination, navigation, bathing, dressing, and toileting. Speech language pathology will work with the patient 60-90 minutes per day working on memory, cognition, expression, social interaction, aphasia, dysphagia and VitalStim. This is an overall plan of care. It may change from time to time. We will team weekly and make changes to plan of care as needed. <ELECTRONICALLY SIGNED> By: Daja Livingston DO 10/22/17 1442 1115 [id number] Livingston DO /nt
--- NOTE | 2017-10-22 14:42 | H ---
[address] [address] HISTORY AND PHYSICAL Name: PER MARKS Room: [address] IN M.R.#: [id number] Admission: 09/26/17 Attend Phys: Daja Livingston, DO Discharge: 10/11/17 Date of : 41 Report #: [id number] THIS REPORT FOR: //name// CC: Iggy Livingston HISTORY OF PRESENT ILLNESS: This is a 76-year-old male, known from previous acute inpatient rehabilitation stay where he was with us in the post-stroke period with a known history of carotid stenosis, status post CEA. [facility] to continue subacute rehabilitation in physical and occupational therapy as well as speech and language pathology. He did start to have a decline due to hypoxemia and shortness of breath. The patient at [facility] diagnosed with pneumonia and concern for aspiration. He was on thickened liquids on his discharge from here due to his ongoing dysphagia and aphasia. At the time he was admitted, he was noted to have atrial fibrillation with RVR. He did require Cardizem drip. He was put on empiric IV antibiotics. He does continue to have significant expressive and mild receptive aphasia. No significant changes since preadmission screening. Previous level of function was minimum to moderate assistance. Current level of function is minimum to moderate assistance of 1-2 depending on therapy, activity and time of day. He is also requiring some increased breathing treatments as well as his antibiotics. Estimated length of stay is 12-14 days with discharge disposition to the home setting with supportive family. He is a right hand dominant male. ALLERGIES: No known drug allergies. PAST MEDICAL HISTORY: Unchanged from previous with the addition of aspiration pneumonia. PAST SURGICAL HISTORY: Unchanged from previous. MEDICATIONS: Reviewed and reconciled by myself and are available in the MAR. SOCIAL HISTORY: Unchanged from previous. FAMILY HISTORY: Unchanged from previous. REVIEW OF SYSTEMS: Unable to obtain as the patient is aphasic. PHYSICAL EXAMINATION: GENERAL: Alert, oriented, no apparent distress. VITAL SIGNS: Reviewed and are stable. HEENT: Atraumatic, normocephalic. Pupils equal, round, reactive. ABDOMEN: Soft, nontender, nondistended. NEUROLOGIC: Cranial nerves 2-12 are grossly intact with no focal neuro deficits. He does have some ongoing aphasia, expressive and receptive and some dysphagia. He also has repetitive tongue movements. [place] [address] HISTORY AND PHYSICAL Name: PER MARKS Room: [address]#: [id number] Admission: 09/26/17 Attend Phys: Daja Livingston DO Discharge: 10/11/17 Date of : 42 Report #: [id number] in the right upper and right lower extremity. SKIN: Warm and dry. No rashes or lesions noted. ASSESSMENT: 1. Aspiration pneumonia with exacerbation of post-stroke residual hemiparesis, aphasia and dysphagia. 2. History of recent stroke with ongoing right upper and lower extremity hemiparesis, aphasia and dysphagia. 3. Multiple medical comorbidities requiring acute inpatient medical care on a daily basis. PLAN: 1. PT, OT, speech, language, case management, nursing and HIMS to make evaluations and recommendations: 2. Plan of care is pending. 3. Medication reconciliation was completed. 4. We will team him weekly and make changes to plan of care as needed. <ELECTRONICALLY SIGNED> By: Daja Livingston DO 10/22/17 1442 1114 [id number] Livingston DO /nt
--- NOTE | 2017-11-11 15:02 | D ---
[facility] [address] [place] [address] DISCHARGE SUMMARY Name: PER MARKS Room: [address] M.R.#: [id number] Admission: 09/26/17 Attend Phys: Daja Livingston, DO Discharge: 10/11/17 Date of : 42 Report #: [id number] THIS REPORT FOR: //name// CC: Iggy Livingston DISCHARGE DIAGNOSIS: Cerebrovascular accident. DISCHARGE DISPOSITION: To subacute skilled level of care for continued rehabilitation with PT, OT and speech language pathology. Rehabilitation fluctuates between fair and poor given his current situation. He has got full weightbearing. He is n.p.o. at this time with 6 cartons of Diabetisource, 4 cartons overnight, 2 cartons bolus during the day due to severe impairment of his swallow with increased risk of aspiration pneumonia. He has intermittently needed 2 liters of oxygen per nasal cannula to keep saturations greater than 90%. Fingerstick blood sugars q.a.c. and at bedtime. Medication reconciliation was completed by myself and is available in the MAR. All of his medications at this time are either subQ or per tube. He did initially do well with rehabilitation, but he had some significant social issues with his being very sick as well as becoming n.p.o. and receiving PEG tube during the stay and he did have significant decline. He had difficulty maintaining his therapy minutes and making gains. Due to the change in level of care, it was noted that he would be more successful at this time at a subacute level of care with a slower pace and lower endurance. DISCHARGE PHYSICAL EXAMINATION: GENERAL: Alert, oriented, no apparent distress. VITAL SIGNS: Reviewed and are stable. HEENT: Head: Atraumatic, normocephalic. Pupils equal, round, reactive. ABDOMEN: Soft, nontender. Left quadrant shows PEG tube, which is in place. EXTREMITIES: He has left upper and lower extremity hemiparesis with significant motor deficits and sensory deficits. MUSCULOSKELETAL: No clubbing, cyanosis or edema. SKIN: Warm and dry. <ELECTRONICALLY SIGNED> By: Daja Livingston DO 11/11/17 1502 [id number] Livingston DO /nt
== END 2017-10-11 16:56 | DRG 189 ==
LOC: M.REH 16:46
PROVIDERS: Internal Medicine; ADMIT Physical Medicine & Rehabilitation
PROC: 0DH63UZ Insertion of Feeding Device into Stomach, Percutaneous Approach (ICD-10-PCS; principal; 2017-10-04)
DX: J96.01 Acute respiratory failure with hypoxia (principal); J69.0 Pneumonitis due to inhalation of food and vomit; E43 Unspecified severe protein-calorie malnutrition; N39.0 Urinary tract infection, site not specified; I69.951 Hemiplegia and hemiparesis following unspecified cerebrovascular disease affecting right dominant side; R53.81 Other malaise; I69.920 Aphasia following unspecified cerebrovascular disease; I69.991 Dysphagia following unspecified cerebrovascular disease; R13.10 Dysphagia, unspecified; I48.91 Unspecified atrial fibrillation; E11.9 Type 2 diabetes mellitus without complications; E78.5 Hyperlipidemia, unspecified; I25.10 Atherosclerotic heart disease of native coronary artery without angina pectoris; I10 Essential (primary) hypertension; K21.9 Gastro-esophageal reflux disease without esophagitis; F32.9 Major depressive disorder, single episode, unspecified; F41.9 Anxiety disorder, unspecified; N40.0 Benign prostatic hyperplasia without lower urinary tract symptoms; K75.81 Nonalcoholic steatohepatitis (NASH); I65.29 Occlusion and stenosis of unspecified carotid artery; Z83.3 Family history of diabetes mellitus; Z82.49 Family history of ischemic heart disease and other diseases of the circulatory system; Z87.891 Personal history of nicotine dependence; Z79.4 Long term (current) use of insulin; Z79.899 Other long term (current) drug therapy; Z68.23 Body mass index [BMI] 23.0-23.9, adult

== ENCOUNTER → 2017-12-17 | Outpatient (CLI) | payer MEDICARE, OTHER ==
[~2017-12-17] MED LIST changes: +AMBIEN 5 MG TABL5 M1 PO; +AUGMENTIN 875-1 EACH PO; +FLORASTOR250 MG PO; +K PHOS PER TUBE; +LIPITOR 20 MG T20 M1 PER TUBE; +LORAZEPAM 0.50.5 M1 PER TUBE; +MAGOX 400400 MG PER TUBE; +PEPCID20 MG PER TUBE
== END | disposition home or self-care (01) ==
LOC: M.INT 07:49
DX: Z43.1 Encounter for attention to gastrostomy (principal)